=== PATIENT | female | born 1980 | race Caucasian/White ===

== ENCOUNTER 2018-11-23 12:08 | Emergency (ER) | payer OTHER, SELFPAY ==
[2018-11-23 12:09] VITALS: BP 108/60; PULSE 120; RESP 18; TEMP 36.1; O2SAT 99; BMI 17.8
--- NOTE | 2018-11-23 13:03 | CT_ITS ---
STUDY: CT ABDOMEN AND PELVIS WITH CONTRAST REASON FOR EXAM: Female, 38 years old. Left flank pain and left groin pain. RADIATION DOSAGE (If Supplied By Facility): CTDIvol = ( 5.93 ) mGy, DLP = ( 258.65 ) mGycm TECHNIQUE: Transaxial images were obtained from the dome of the diaphragm to the symphysis pubis without oral contrast. 80ML ml of Isovue 300 contrast was administered. Sagittal and coronal images were reconstructed. Individualized dose optimization techniques were used for this CT. COMPARISON: None. FINDINGS: The visualized lung bases are unremarkable. The visualized portions of the heart are within normal limits. Normal liver. Normal gallbladder and extrahepatic biliary system. Normal spleen. Normal pancreas. Normal bilateral adrenal glands. There is a 4.3 mm calculus in the upper pole calyx of the right kidney. Normal left kidney. Normal visualized stomach. Normal small intestine. Normal colon. The appendix is visualized and appears normal. Normal abdominal aorta. Normal inferior vena cava. Normal retroperitoneum. Normal urinary bladder. There is a 1.9 cm x 1.9 cm dominant follicle in the left ovary. ESSURE devices are seen in the fallopian tubes. Normal abdominal wall. Limbus vertebrae involving the anterior superior endplates of the L3 and L4 vertebrae. CT/Abdomen/Pelvis W IV Cont ONLY IMPRESSION: There is a 4.3 mm nonobstructive calculus in the upper pole calyx of the right kidney. 1.9 cm x 1.9 cm dominant follicle in the left ovary. Electronically Signed: Rajat Arevalo MD at 15:13 EST Tel [phone], Service support ,
--- NOTE | 2018-11-23 13:04 | ED.VISSUMM ---
- ER Visit Summary Date of Service: 11/23/18 Chief Complaint: Sided abdominal pain and flank pain. History of Present Illness: The patient is a 38 F dyspnea past medical history. Only prior surgery was a . Patient states yesterday she started gradual onset left-sided abdominal flank pain. Associated nausea with dry heaves. No diarrhea. No dysuria. Last menstrual period was in October some time. States she is not late. States she had a fever as high as 103.5 yesterday. Denies any cough or shortness of breath. She has never had pyelonephritis nor diverticulitis. She denies any vaginal bleeding or discharge. Physical Examination: Young female no acute distress. Vital signs are stable. Currently afebrile. Pulse is 9 9% room air no signs of hypoxia. HEENT exam unremarkable. Neck nontender no lymphadenopathy. Lungs clear to auscultation bilaterally. Heart tachycardic no murmur rate about 110. Abdomen soft. Tender left lower quadrant and left flank area. No ecchymosis or bruising. Nondistended. With the right upper right lower quadrant unremarkable. No signs of obstruction. No hernias or masses. No peritoneal signs. Positive bowel sounds. Back nontender. No CVA tenderness. Moving all 4 extremities. Neurovascularly intact. Patient is awake and alert with no focal motor deficits. Test Results: 12.5. Normal hemoglobin. Chemistries unremarkable normal creatinine and gap. Serum test negative. UA positive nitrates 50-100 white cells and 4+ bacteria. A culture was sent. CT flank study shows a right renal stone but no acute obstruction in this left ovarian cyst. The appendix is seen and was normal. Patient's exam and tests are consistent with a UTI and most likely early pyelonephritis on the left. Emergency Department Course and Treatment: Treated with IV fluids and Zofran for nausea. Repeat exam she is doing well at 1545. To this may be early pyelonephritis I am to give her 1 dose of IV was 7. She was started on Keflex 500 4 times daily. A urine culture was sent. She has no primary care physician she will be referred to Dr. Omar Ibarra. Treatment Plan: Keflex 500 4 times daily for 10 days. Fluids and rest. Return if worse. Disposition: Discharge Impression: Acute left flank pain and fever secondary to UTI consistent with early pyelonephritis This note was generated with Dragon dictation software. It may contain incorrect words, spelling, and punctuation that were not noted in review of the chart prior to signing ED Disposition - Plan for ED Patient: Chief Complaint: Abd Pain Referrals: NOT,DEFINED [NON-STAFF] -
[2018-11-23 13:27] LABS: Color, Urine Yellow (Yellow); Glucose, Dipstick Normal (Normal); Ketone-Dipstick 5 mg/dl (Negative); Leukocyte Esterase-Dipstick 500 /ul (Negative); Nitrite-Dipstick Positive (Negative); Occult Blood-Urine 150 /ul (Negative); Protein-Dipstick 30 mg/dl (Negative); Urine Bilirubin Dipstick Negative (Negative); Urine Clarity Cloudy (Clear); Urine Urobilinogen 1 mg/dl (Normal)
[2018-11-23] MEDS: Ondansetron 4 MG/2 ML Vial IV (13:31)
[2018-11-23] MEDS: 0.9% Normal Saline 1,000 ML 1000 ML IV (13:32)
[2018-11-23 13:38] LABS: Bacteria 4+ /hpf (None Seen); Mucous, Urine 2+ /hpf (<or=2+); Red Blood Cells-Urine 0-5 SEEN /hpf (0-5); Squamous Epithelial Cells - UA 0-5 SEEN /hpf (5-10); White Blood Cells 50-100 SEEN /hpf (0-5)
[2018-11-23 13:45] LABS: Absolute Lymphocyte Count 1.39 X10^3/ul (0.83-4.51); Absolute Neutrophil Count 9.6 X10^3/uL (2.0-7.7); Basophil# 0.02 X10^3/uL; Basophil% 0.2 % (0-1); Eosinophil# 0.03 X10^3/uL; Eosinophils% 0.2 % (0-5); Hematocrit 41.6 % (37-47); Hemoglobin 13.7 g/dl (12.0-15.0); Lymphocyte # 1.39 X10^3/ul (4.0); Lymphocyte % 11.2 % (19-41); Mean Corp Hgb Conc 32.9 g/gl (32-36); Mean Corpuscular Hgb 30.4 pg (27.0-32.0); Mean Corpuscular Volume 92.2 fL (81-99); Mean Platelet Vol. 9.3 fl (6.2-12.0); Monocyte# 1.38 X10^3/uL; Monocyte% 11.1 % (0-10); Neutrophil # 9.62 X10^3/uL (2.7-7.7); Neutrophil % 77.1 % (47-70); Platelet Count 207 K/mm3 (150-450); RBC Distribution Width CV 12.6 % (11.6-14.6); RBC Distribution Width SD 42.4 fl (35.1-43.9); Red Blood Count 4.51 M/mm3 (4.2-5.4); White Blood Count 12.5 K/mm3 (4.4-11.0)
[2018-11-23 13:47] LABS: POSITIVE COUNT NO; POSITIVE DIFFERENTIAL NO; POSITIVE MORPHOLOGY NO
[2018-11-23 14:01] LABS: Anion Gap 8 (5-15); BUN 9 mg/dL (7-18); BUN/Creat Ratio 11.9 RATIO (10-20); Calcium,Total 8.4 mg/dL (8.5-10.1); Chloride 105 mmol/L (98-107); Creatinine, Serum 0.76 mg/dL (0.55-1.02); EST Glomerular Filtration Rate 91 mL/min (>60); Est Glom Filt Rate - Afr Amer 110 mL/min (>60); Estimated Creatinine Clearance 74.74 ml/min; Glucose 96 mg/dL (74-106); Potassium 3.8 mmol/L (3.5-5.1); Sodium Level 138 mmol/L (136-145)
[2018-11-23 14:25] LABS: Pregnancy, Serum, hCG Quali. NEGATIVE Negative (0-9 Nonpreg)
[2018-11-23 15:04] VITALS: BP 93/54; PULSE 102; RESP 15; O2SAT 97
--- NOTE | 2018-11-23 15:48 | ED.DEP ---
ED Disposition - Plan for ED Patient: Disposition: Home or Assisted Living Chief Complaint: Abd Pain Instructions: ED Kidney Infec Female Prescriptions: Cephalexin [Keflex] 500 mg PO Q6 #40 cap Referrals: Omar Ibarra MD [STAFF PHYSICIAN] - 3-5 Days if not improving Additional Instructions: Plenty of fluids and rest. Keflex is an antibiotic for your urinary tract infection 1 pill 4 times a day till gone 10 days. Follow-up with primary care physician to ensure you are improving. I referred you to Dr. Omar Ibarra. Return to ER feeling worse.
[2018-11-23] MEDS: Ceftriaxone 1 GM/50 ML BAG IV (15:59)
[2018-11-23 16:39] VITALS: BP 117/69; PULSE 85; RESP 15; O2SAT 97
== END 2018-11-23 16:40 | disposition home or self-care (01) ==
PROVIDERS: Emergency Provider Emergency Medicine
DX: N10 Acute pyelonephritis (principal)
CPT/HCPCS: 74177; 80048; 81001; 84703; 85025; 87086; 87088; 87186; 96365; 96375; 99283; J7030; J7050; Q9967; J2405

== ENCOUNTER 2019-01-23 19:48 | Emergency (ER) | payer SELFPAY ==
[2019-01-23 19:50] VITALS: BP 102/58; PULSE 116; PULSE 121; RESP 17; TEMP 37.6; O2SAT 95; O2SAT 96; BMI 19.6
--- NOTE | 2019-01-23 20:16 | ED.DCSUM_ITS ---
- ER Visit Summary Date of Service: 01/23/19 Chief Complaint: Concern for urinary tract infection History of Present Illness: The patient is a 38 F who presents for 1 day of bilateral flank pain with urinary symptoms. Patient states she has had frequent UTIs, with 2 in the last 3 months, the first 1 treated with Keflex and the second 1 treated with Macrobid. Her last antibiotic use was in mid December. Yesterday she began having bilateral flank pain radiating around in the low abdomen. Patient had fever of 101. She began vomiting this morning and vomited multiple times. Now she is also complaining of upper abdominal pain. She denies any other symptoms. Patient denies any other medical history. Physical Examination: Vital signs: afebrile, hemodynamically stable, no hypoxia on room air General: well nourished, well developed, in no distress Skin: warm, dry, no rash, no pallor HEENT: normocephalic and atraumatic; PERRL, EOMI, moist mucous membranes Cardiovascular: Tachycardic rate and rhythm without murmurs, no peripheral edema, 2+ pulses all distal extremities Respiratory: No increased work of breathing, lungs are clear to auscultation bilaterally, no rales, rhonchi or wheezing Abdominal: Abdomen is soft, tender in the epigastrium with normoactive bowel sounds, positive CVA tenderness bilaterally, no guarding or rebound, no masses MSK: Moves all extremities, no deformities, normal strength Neuro: Awake and alert, oriented ?4. No facial droop, sensation and motor function intact and symmetric Test Results: Abnormal Lab Results 01/23/19 01/23/19 01/23/19 20:15 20:15 20:15 WBC 13.3 H RBC 4.02 L Hgb 12.0 Hct 36.8 L MCV 91.5 MCH 29.9 MCHC 32.6 RDW 13.4 RDW Differential 44.8 H Plt Count 174 MPV 9.4 Immature Gran % (Auto) 0.200 Neut % (Auto) 78.2 H Lymph % (Auto) 8.3 L [place] % (Auto) 13.0 H Eos % (Auto) 0.2 Baso % (Auto) 0.1 Absolute Neuts (auto) 10.4 H Absolute Lymphs (auto) 1.11 Sodium 136 Potassium 3.5 Chloride 105 Carbon Dioxide 25.0 Anion Gap 6 BUN 8 Creatinine 0.82 Estim Creat Clear Calc 71.52 Est GFR (MDRD) Af Amer 101 Est GFR (MDRD) Non-Af 83 BUN/Creatinine Ratio 9.8 L Glucose 117 H Calcium 7.9 L Total Bilirubin 0.70 AST 9 L ALT 16 Alkaline Phosphatase 63 Total Protein 6.8 Albumin 3.2 Globulin 3.6 Albumin/Globulin Ratio 0.9 Lipase 39 L Urine Color Urine Clarity Urine pH Ur Specific [place] Urine Protein Urine Glucose (UA) Urine Ketones Urine Occult Blood Urine Nitrite Urine Bilirubin Urine Urobilinogen Ur Leukocyte Esterase Urine RBC Urine WBC Ur Squamous Epith Cells Urine Bacteria Urine Mucus Urine Test Negative 01/23/19 20:20 WBC RBC Hgb Hct MCV MCH MCHC RDW RDW Differential Plt Count MPV Immature Gran % (Auto) Neut % (Auto) Lymph % (Auto) [place] % (Auto) Eos % (Auto) Baso % (Auto) Absolute Neuts (auto) Absolute Lymphs (auto) Sodium Potassium Chloride Carbon Dioxide Anion Gap BUN Creatinine Estim Creat Clear Calc Est GFR (MDRD) Af Amer Est GFR (MDRD) Non-Af BUN/Creatinine Ratio Glucose Calcium Total Bilirubin AST ALT Alkaline Phosphatase Total Protein Albumin Globulin Albumin/Globulin Ratio Lipase Urine Color Yellow Urine Clarity Sl. Cloudy Urine pH 6.0 Ur Specific [place] 1.015 Urine Protein 30 H Urine Glucose (UA) Normal Urine Ketones 150 H Urine Occult Blood 150 H Urine Nitrite Positive H Urine Bilirubin 1 H Urine Urobilinogen 8 H Ur Leukocyte Esterase 500 H Urine RBC 50-100 SEEN Urine WBC 50-100 SEEN Ur Squamous Epith Cells 0-5 SEEN Urine Bacteria 3+ Urine Mucus 0 SEEN Urine Test Medications Given Discontinued Medications Ciprofloxacin HCl (Cipro) 500 mg PO X1 ONE Stop: 01/23/19 21:34 Sodium Chloride () 1,000 mls @ 1,000 mls/hr IV .Q1H ONE Stop: 01/23/19 21:13 Last Admin: 01/23/19 20:26 Dose: 1,000 mls/hr Ketorolac Tromethamine (Toradol) 15 mg IV X1 ONE Stop: 01/23/19 20:15 Last Admin: 01/23/19 20:26 Dose: 15 mg Ondansetron HCl (Zofran) 4 mg IV X1 ONE Stop: 01/23/19 20:15 Last Admin: 01/23/19 20:26 Dose: 4 mg Emergency Department Course and Treatment: Patient was given IV fluids, Toradol and Zofran for symptomatic relief. Her upper abdominal pain did not start until after her episodes of violent vomiting, thus the upper abdominal pain is most likely due to the vomiting. Patient has a mild leukocytosis which may be due to demarginalization from the vomiting. Patient's urine was strongly positive for infection. Given the upper back pain associated with the UTI, patient will be treated for pyelonephritis. She is well-appearing at this time and able to tolerate oral intake. She is feeling better on reevaluation after receiving medications and fluids. Patient is amenable to outpatient treatment and was started on ciprofloxacin based on culture results from her prior UTI and based on the antibiotic she had been given earlier this year. Patient was discharged home with return precautions. Treatment Plan: [] Disposition: [] Impression: early pyelonephritis This note was generated with [employer] dictation software. It may contain incorrect words, spelling, and punctuation that were not noted in review of the chart prior to signing ED Disposition - Plan for ED Patient: Disposition: Home or Assisted Living Instructions: ED Kidney Infec Female Prescriptions: Ciprofloxacin [Cipro] 500 mg PO BID #14 tab Referrals: Krissy Narvaez MD [STAFF PHYSICIAN] - As soon as possible Additional Instructions: The antibiotic for your urinary infection as prescribed for the entire 7 days, even if you are feeling better before it is complete. The this paperwork to establish primary care and for further evaluation of your recurrent UTIs. If you have any worsening of your condition or any new concerning symptoms, please return immediately to the emergency department for another evaluation.
[2019-01-23] MEDS: 0.9% Normal Saline 1,000 ML 1000 ML IV (20:26)
[2019-01-23] MEDS: Ondansetron 4 MG/2 ML Vial IV (20:26)
[2019-01-23] MEDS: Ketorolac 30 MG/ML Syringe 15 MG IV (20:26)
[2019-01-23 21:08] LABS: Absolute Lymphocyte Count 1.11 X10^3/ul (0.83-4.51); Absolute Neutrophil Count 10.4 X10^3/uL (2.0-7.7); Basophil# 0.01 X10^3/uL; Basophil% 0.1 % (0-1); Differential Indicated SCAN CRITERIA MET; Eosinophil# 0.02 X10^3/uL; Eosinophils% 0.2 % (0-5); Hematocrit 36.8 % (37-47); Lymphocyte # 1.11 X10^3/ul (4.0); Lymphocyte % 8.3 % (19-41); Mean Corp Hgb Conc 32.6 g/gl (32-36); Mean Corpuscular Hgb 29.9 pg (27.0-32.0); Mean Corpuscular Volume 91.5 fL (81-99); Mean Platelet Vol. 9.4 fl (6.2-12.0); Monocyte# 1.73 X10^3/uL; Neutrophil # 10.44 X10^3/uL (2.7-7.7); Neutrophil % 78.2 % (47-70); POSITIVE COUNT NO; POSITIVE DIFFERENTIAL YES; POSITIVE MORPHOLOGY NO; Platelet Count 174 K/mm3 (150-450); RBC Distribution Width CV 13.4 % (11.6-14.6); RBC Distribution Width SD 44.8 fl (35.1-43.9); Red Blood Count 4.02 M/mm3 (4.2-5.4); White Blood Count 13.3 K/mm3 (4.4-11.0)
[2019-01-23 21:14] LABS: ALB/GLOB Ratio 0.9 RATIO (0.9-2.4); AST(SGOT) 9 U/L (15-37); Alanine Aminotransfer ALT/SGPT 16 U/L (13-56); Albumin, Serum 3.2 g/dL (3.2-5.0); Alkaline Phosphatase 63 U/L (45-117); Anion Gap 6 (5-15); BUN 8 mg/dL (7-18); BUN/Creat Ratio 9.8 RATIO (10-20); Calcium,Total 7.9 mg/dL (8.5-10.1); Chloride 105 mmol/L (98-107); Creatinine, Serum 0.82 mg/dL (0.55-1.02); EST Glomerular Filtration Rate 83 mL/min (>60); Est Glom Filt Rate - Afr Amer 101 mL/min (>60); Estimated Creatinine Clearance 71.52 ml/min; Globulin 3.6 g/dL (2.2-4.2); Glucose 117 mg/dL (74-106); Internal QC Validated? YES +Cl - CLEAR BKGD; Lipase 39 U/L (73-393); Potassium 3.5 mmol/L (3.5-5.1); Pregnancy, Urine Negative Negative; Protein, Total 6.8 g/dL (6.4-8.2); Sodium Level 136 mmol/L (136-145)
[2019-01-23 21:18] LABS: Color, Urine Yellow (Yellow); Glucose, Dipstick Normal (Normal); Leukocyte Esterase-Dipstick 500 /ul (Negative); Mucous, Urine 0 SEEN /hpf (<or=2+); Nitrite-Dipstick Positive (Negative); Occult Blood-Urine 150 /ul (Negative); Protein-Dipstick 30 mg/dl (Negative); Specific Gravity, Urine 1.015 (1.002-1.030); Urine Clarity Sl. Cloudy (Clear); Urine Urobilinogen 8 mg/dl (Normal)
[2019-01-23 21:20] LABS: Urine Bilirubin Dipstick 1 mg/dL (Negative)
[2019-01-23 21:21] LABS: Ketone-Dipstick 150 mg/dl (Negative)
[2019-01-23 21:24] LABS: Bacteria 3+ /hpf (None Seen); Red Blood Cells-Urine 50-100 SEEN /hpf (0-5); Squamous Epithelial Cells - UA 0-5 SEEN /hpf (5-10); White Blood Cells 50-100 SEEN /hpf (0-5)
[2019-01-23 21:44] LABS: Differential Comment SCANNED; Platelet Estimate ADEQUATE (ADEQ)
[2019-01-23 22:13] VITALS: BP 89/51; PULSE 85; PULSE 88; RESP 17; O2SAT 98
[2019-01-23] MEDS: Ciprofloxacin 500 MG Tablet PO (22:15)
[2019-01-23 22:21] VITALS: BP 102/71; TEMP 36.4
--- NOTE | 2019-01-23 22:22 | ED.RN ---
PT TEST WALKED IN DEPARTMENT. PT DENIES ANY DIZZINESS UPON STANDING. PT'S LOWER BP WAS TAKEN SUPINE. PT REPORTS SYSTOLIC BP NORMALLY 99
[2019-01-25 13:21] LABS: Pathologist Review Reviewed
== END 2019-01-23 22:27 | disposition home or self-care (01) ==
PROVIDERS: Emergency Provider Emergency Medicine
DX: N12 Tubulo-interstitial nephritis, not specified as acute or chronic (principal); Z87.440 Personal history of urinary (tract) infections
CPT/HCPCS: 80053; 81001; 81025; 83690; 85025; 87086; 87088; 87186; 96361; 96374; 96375; 99284; J7030; J2405

== ENCOUNTER 2019-01-27 08:11 | Emergency (ER) | payer SELFPAY ==
[2019-01-27 08:12] VITALS: BP 119/80; PULSE 80; RESP 17; TEMP 36.9; O2SAT 97; BMI 21.4
--- NOTE | 2019-01-27 08:24 | CT_ITS ---
STUDY: CT ABDOMEN AND PELVIS WITH CONTRAST REASON FOR EXAM: Female, 38 years old. Right flank pain. RADIATION DOSAGE (If Supplied By Facility): CTDIvol = ( 10.00 ) mGy, DLP = ( 581.78 ) mGycm TECHNIQUE: Transaxial images were obtained from the dome of the diaphragm to the symphysis pubis without oral contrast. Isovue 300 100 IV was administered. Sagittal and coronal images were reconstructed. Individualized dose optimization techniques were used for this CT. COMPARISON: November 23, 2018. FINDINGS: Lung bases: Unremarkable. Heart: Unremarkable. Liver: Mild portal edema (axial image 30 series 2). Portal vein patent. No focal hepatic lesions identified. Gallbladder/biliary ducts: Unremarkable. Pancreas: Unremarkable. Spleen: Unremarkable. Adrenal glands: Unremarkable. Kidneys/ureters/bladder: Moderate right hydroureteronephrosis with 4 mm stone at the right proximal ureter (axial image 52 and 53 series 2). Minimal urinary bladder wall thickening (coronal image 42 series 601). Nondistended left ureter. Slightly delayed right nephrogram (axial image 30 series 2). Uterus/adnexa: Edematous uterus (axial image 95 series 2) with distended endometrial canal. Bilateral tubal devices (axial image 94 series 2). Right hyperdense cystic adnexa (axial image 92 series 2) measuring 1.6 cm. Small left cystic adnexa (axial image 92 series 2). Trace pelvic free fluid (axial image 92 series 2). Large bowel/small bowel: Mild retained stool burden. No acute small bowel or large bowel process. Appendix: Unremarkable (axial image 79 series 2). Gastroesophageal junction/stomach: Unremarkable. Retroperitoneum/lymph nodes: No intra-abdominal free air. Trace pelvic free fluid. No pathologically enlarged lymph nodes. Vascular: Unremarkable. Osseous structures: Minimal degenerative changes. L3 and L4 limbus vertebra. Small Schmorl's nodes. No acute process. Subcutaneous/soft tissues: Tiny fat-containing umbilical hernia. No acute process. CT/Abdomen/Pelvis W IV Cont ONLY IMPRESSION: Acute obstructing right proximal 4 mm ureteral stone with moderate right hydroureteronephrosis Delayed right renal nephrogram with mild urinary bladder wall thickening possibly representing early infection (correlate urinalysis) Edematous uterus, distended endometrial canal, bilateral cystic adnexa, tubal devices and trace pelvic free fluid (statistically physiologic) Additional nonemergent findings, as above Electronically Signed: Omar Garg DO at 9:38 EDT Tel , Service support ,
--- NOTE | 2019-01-27 08:26 | ED.VISSUMM ---
- ER Visit Summary Date of Service: 01/27/19 Chief Complaint: Right flank pain History of Present Illness: The patient is a 38 F with several days of right flank pain. She was here 4 days ago and diagnosed with pyelonephritis. She was started on Cipro. She has been taking it as prescribed. She continues to have pain in her suprapubic region, right flank, and right CVA region. She is taking Tylenol for pain. Symptoms seem to be worsening. Physical Examination: Afebrile and vital signs unremarkable. Patient is tearful and appears uncomfortable. Alert and oriented. Heart regular rate and rhythm. Lungs clear. Abdomen is tender in the suprapubic and right side. Right CVA also tender to palpation. No guarding or rebound. Skin appears normal. Test Results: Labs, urine, CT pending. Emergency Department Course and Treatment: I did review the patient's cultures. Her urine showed E. coli that was sensitive to Cipro. I am not sure why she is worsening. She says she is compliant with her treatment. Her pain is not controlled with Tylenol. She was given a dose of Toradol as well as fluids and Zofran. Will recheck labs and urine. Will add a CT today to evaluate for other causes. Patient's urinalysis is much improved. CBC and BMP unremarkable. CT showed a 4 mm right proximal ureter stone with obstruction. She also has some edematous changes to her uterus which are likely physiologic. Patient will be prescribed Percocet for pain. Zofran as needed. Follow-up with urology. She should also follow-up with her primary care doctor and/or [facility] regarding her incidental uterine findings. These are likely physiologic and not an emergent process. Treatment Plan: Above Disposition: Discharge Impression: 1. Right ureteral colic This note was generated with [employer] software. It may contain incorrect words, spelling, and punctuation that were not noted in review of the chart prior to signing ED Disposition - Plan for ED Patient: Referrals: Krissy Narvaez MD [Primary Care Provider] -
[2019-01-27] MEDS: Ondansetron 4 MG/2 ML Vial IV (08:36)
[2019-01-27] MEDS: 0.9% Normal Saline 1,000 ML 1000 ML IV (08:36)
[2019-01-27] MEDS: Ketorolac 30 MG/ML Syringe IV (08:36)
[2019-01-27 08:43] LABS: Absolute Lymphocyte Count 1.39 X10^3/ul (0.83-4.51); Absolute Neutrophil Count 6.8 X10^3/uL (2.0-7.7); Basophil# 0.03 X10^3/uL; Basophil% 0.3 % (0-1); Eosinophil# 0.05 X10^3/uL; Eosinophils% 0.6 % (0-5); Hematocrit 37.4 % (37-47); Hemoglobin 11.9 g/dl (12.0-15.0); Lymphocyte # 1.39 X10^3/ul (4.0); Lymphocyte % 15.4 % (19-41); Mean Corp Hgb Conc 31.8 g/gl (32-36); Mean Corpuscular Hgb 29.2 pg (27.0-32.0); Mean Corpuscular Volume 91.9 fL (81-99); Monocyte# 0.77 X10^3/uL; Monocyte% 8.5 % (0-10); Neutrophil # 6.77 X10^3/uL (2.7-7.7); Neutrophil % 74.9 % (47-70); Platelet Count 269 K/mm3 (150-450); RBC Distribution Width CV 13.7 % (11.6-14.6); RBC Distribution Width SD 45.9 fl (35.1-43.9); Red Blood Count 4.07 M/mm3 (4.2-5.4)
[2019-01-27 08:45] LABS: POSITIVE COUNT NO; POSITIVE DIFFERENTIAL NO; POSITIVE MORPHOLOGY NO
[2019-01-27 08:51] LABS: Anion Gap 7 (5-15); BUN 16 mg/dL (7-18); BUN/Creat Ratio 17.5 RATIO (10-20); Calcium,Total 8.7 mg/dL (8.5-10.1); Chloride 107 mmol/L (98-107); Creatinine, Serum 0.91 mg/dL (0.55-1.02); EST Glomerular Filtration Rate 73 mL/min (>60); Est Glom Filt Rate - Afr Amer 89 mL/min (>60); Estimated Creatinine Clearance 63.25 ml/min; Glucose 108 mg/dL (74-106); Potassium 3.7 mmol/L (3.5-5.1); Sodium Level 139 mmol/L (136-145)
[2019-01-27 08:54] LABS: Mucous, Urine 0 SEEN /hpf (<or=2+); White Blood Cells 0 SEEN /hpf (0-5)
[2019-01-27 08:55] LABS: Color, Urine Yellow (Yellow); Glucose, Dipstick Normal (Normal); Ketone-Dipstick Negative (Negative); Leukocyte Esterase-Dipstick Negative /ul (Negative); Nitrite-Dipstick Negative (Negative); Occult Blood-Urine 25 /ul (Negative); Protein-Dipstick Negative (Negative); Urine Bilirubin Dipstick Negative (Negative); Urine Clarity Clear (Clear); Urine Urobilinogen Normal (Normal)
[2019-01-27 09:06] LABS: Bacteria RARE /hpf (None Seen); Red Blood Cells-Urine 0-5 SEEN /hpf (0-5); Squamous Epithelial Cells - UA 0-5 SEEN /hpf (5-10)
--- NOTE | 2019-01-27 09:50 | ED.DEP ---
ED Disposition - Plan for ED Patient: Instructions: ED Stone Renal W Colic Prescriptions: Oxycodone HCl/Acetaminophen [Percocet 5/325] 1 tab PO Q6H PRN PRN 3 Days #12 tab PRN Reason: Pain Ondansetron [Zofran Odt] 4 mg PO Q8H PRN PRN #10 tab PRN Reason: Nausea Smz/Tmp Ds [Bactrim Ds] 1 tab PO BID #14 tab Referrals: Krissy Narvaez MD [Primary Care Provider] - Sascha Zuniga MD [STAFF PHYSICIAN] -
[2019-01-27 10:11] VITALS: RESP 18
[2019-08-24 14:01] VITALS: BMI 20.6
== END 2019-01-27 10:19 | disposition home or self-care (01) ==
LOC: ED 09:27
PROVIDERS: Emergency Provider Emergency Medicine; Family Provider Internal Medicine; PCP Internal Medicine
DX: N13.2 Hydronephrosis with renal and ureteral calculous obstruction (principal)
CPT/HCPCS: 74177; 80048; 81001; 85025; 96361; 96374; 96375; 99283; J7030; Q9967; A4216; J2405

== ENCOUNTER 2019-02-07 11:52 | Day surgery (SDC) | payer SELFPAY ==
[2019-02-07 12:16] LABS: Internal QC Validated? YES +Cl - CLEAR BKGD; Pregnancy, Urine Negative Negative
[2019-02-07 12:19] VITALS: BP 100/66; PULSE 82; RESP 18; TEMP 36.9; O2SAT 100; BMI 18.6
--- NOTE | 2019-02-07 14:59 | PCM.OPRPT ---
Problem List (1) Right ureteral calculus Status: Acute Report of Operation Date of Procedure: 02/07/19 Pre-Operative Diagnosis: right ureteral calculus Post-Operative Diagnosis: same Surgery/Procedure Performed:: cystoscopy, right ureteroscopy, laser lithotripsy, right ureteral stent insertion Description of Surgical Findings:: Stone was embedded under ureteral mucosa. laser lithotripsy was difficult, and the stone was not able to be entirely removed. Stent placed in good position. Type of Anesthesia:: General Special Medications: ancef Estimated Blood Loss (mL): 5cc Description of Procedure: The patient is a 38-year-old female who has been treated for urinary tract infections for approximately 1 month including one episode of pyelonephritis. Eventually someone obtained imaging and identified a mid ureteral calculus on the right side. After discussing the risks, benefits and alternatives she agreed to proceed with surgical intervention. Formed consent was obtained. The patient was taken to the operating room and placed on the operating room table. Anesthesia monitored the head, neck, airway, IV access and vital signs throughout the case. Once anesthesia was appropriately administered the patient was placed into dorsal lithotomy position. She was prepped and draped in usual sterile fashion. At this time a cystourethroscopy was performed revealing no evidence of bladder mucosal abnormality, calculus, foreign body, ulceration or erythema. The right ureteral orifice was identified and intubated with 2 separate 0.035 Glidewires. One of these wires was used as a safety wire and the other was used for the flexible ureteroscope. The stone was identified in the proximal ureter. It was large and almost completely covered with mucosa. Using a 270 ?m laser fiber, laser lithotripsy was performed until I could not safely continue. At this time the laser fiber was removed, and a 6 [place] 24 cm double-J stent was passed alongside the stone into the renal pelvis. Good curling position was identified under fluoroscopic visualization in the renal pelvis and was visualized directly in the bladder. The patient's bladder was emptied and the case was concluded. The patient was awakened and taken to the recovery room in good condition. Grafts/Implants Used: 6x24 JJ stent - Complications none - Admit VTE Documentation VTE Present on Admission: Yes VTE Mechan Device Prophylaxis: SCD's VTE Pharm Prophylaxis ordered?: No Reason prophylaxis not ordered:: Treatment Not Indicated
[2019-02-07] MEDS: Cefazolin 2 GM in 0.9% Normal Saline 100 ML IV (15:02)
[2019-02-07 16:12] VITALS: BP 100/66; BP 116/86; PULSE 63; RESP 18; TEMP 36.2; O2SAT 98
[2019-02-07 16:15] VITALS: BP 100/66; BP 112/78; PULSE 60; RESP 18; O2SAT 98
--- NOTE | 2019-02-07 16:27 | DCINST_ITS ---
Discharge Diet: No Restrictions Discharge Activity: May not drive while taking narcotic pain medications. May resume sexual activity in: 4 weeks Call your doctor if you observe: Fever of 101 or Higher, Inability to urinate, Shortness of breath, Chest pain, Calf discomfort, Uncontrolled pain Allergies/Adverse Reactions: Allergies No Known Allergies Allergy (Verified 02/04/19 08:25) Medications to take at Discharge Ondansetron [Zofran Odt] 4 mg PO Q8H PRN PRN #10 tab 01/27/19 Oxycodone HCl/Acetaminophen [Percocet 5-325 mg Tablet] 1 ea PO PRN PRN #20 tab 02/07/19 Phenazopyridine HCl [Pyridium] 200 mg PO TID PRN PRN 7 Days #30 tab 02/07/19 Smz/Tmp Ds [Bactrim Ds] 1 tab PO BID 3 Days #6 tab 02/07/19 The following prescriptions were given: Oxycodone HCl/Acetaminophen [Percocet 5-325 mg Tablet] 1 ea PO PRN PRN #20 tab PRN Reason: Pain Phenazopyridine HCl [Pyridium] 200 mg PO TID PRN PRN 7 Days #30 tab PRN Reason: Bladder Spasms Smz/Tmp Ds [Bactrim Ds] 1 tab PO BID 3 Days #6 tab Primary Care Physician: Care Physician,No Primary [Primary Care Provider] - Test Results: Test results from this visit will be discussed in further detail at your follow- up appointment, if applicable. Please Follow Up With: Aida Sainz MD When: call the office Proposed Discharge Date: 02/07/19
[2019-02-07 16:30] VITALS: BP 100/66; BP 114/75; PULSE 52; RESP 18; O2SAT 100
[2019-02-07 16:49] VITALS: BP 100/66; BP 108/76; PULSE 59; RESP 18; TEMP 36.3; O2SAT 100
[2019-02-07 18:00] VITALS: BP 100/66; BP 111/72; PULSE 62; RESP 16; TEMP 36.8; O2SAT 100
== END 2019-02-07 18:01 | disposition home or self-care (01) ==
LOC: SDC 11:53 → AC 11:55
PROVIDERS: Anesthesiology; Referring Provider Urology; Visit Provider Urology
PROC: 0TJ98ZZ Inspection of Ureter, Via Natural or Artificial Opening Endoscopic (ICD-10-PCS; CPT 52352; principal; 2019-02-07 14:10)
DX: N13.2 Hydronephrosis with renal and ureteral calculous obstruction (principal); N39.0 Urinary tract infection, site not specified; Z87.440 Personal history of urinary (tract) infections
CPT/HCPCS: 00918; 52356; 76000; 81025; J7120; C1769; C2617; J2405

== ENCOUNTER 2019-02-22 08:56 | Day surgery (SDC) | payer OTHER, SELFPAY ==
[2019-02-15 14:42] VITALS: BMI 18.6
--- NOTE | 2019-02-22 08:43 | PCM.OPRPT ---
Problem List (1) Right ureteral calculus Status: Acute Report of Operation Date of Procedure: 02/22/19 Pre-Operative Diagnosis: right embedded ureteral calculus Post-Operative Diagnosis: same, stone moved into right renal pelvis. Surgery/Procedure Performed:: cystoscopy, right ureteroscopy, laser lithotripsy, right ureteral stent change Description of Surgical Findings:: stone that was in ureter was dislodged and moved into kidney after last case. fragmented into small pieces too small for removal. Stent changed, good positioning. Type of Anesthesia:: General Estimated Blood Loss (mL): 3cc Description of Procedure: The patient is a 38-year-old woman who underwent a right-sided ureteroscopy with laser lithotripsy approximately 2 weeks ago for an embedded right ureteral calculus. She now presents for completed surgical intervention on her right ureteral calculus. All risks benefits and alternatives were discussed and informed consent was obtained. The patient was taken to the operating room and placed on the operating room table. Anesthesia monitored the head, neck, airway, IV access and vital signs throughout the case. Once anesthesia was superbly administered, the patient was prepped and draped in usual sterile fashion. A cystourethroscopy was performed and 2.035 Glidewire were inserted alongside the ureteral stent which was then removed without difficulty. The flexible ureteroscope was passed over 1 of the Glidewire into the renal pelvis without difficulty. Ureteroscopy revealed a calcification in the right lower pole with no ureteral stones identified. The stone in the kidney was then lasered with the 270 ?m holmium laser fiber. It was broken into small fragments and dust and I was unable to obtain specimen for evaluation. At the conclusion of the lasering process, the renal pelvis was flushed with sterile saline through the scope and careful visualization of the ureter was performed upon exiting from the ureter. No further stones were identified. At this time the remaining safety wire was used to pass a 6 [place] 24 cm double-J stent with good curling in the renal pelvis as well as the urinary bladder. The patient's bladder was emptied and the case was terminated. The patient was awakened and taken to the recovery room in good condition. There were no complications during this procedure. Grafts/Implants Used: 6x24 JJ stent - Complications none - Admit VTE Documentation VTE Present on Admission: Yes VTE Mechan Device Prophylaxis: SCD's VTE Pharm Prophylaxis ordered?: No Reason prophylaxis not ordered:: Treatment Not Indicated
--- NOTE | 2019-02-22 08:45 | DCINST_ITS ---
Discharge Diet: No Restrictions Discharge Activity: Return to Normal Activity, May not drive while taking narcotic pain medications. May resume sexual activity in: 1 week Call your doctor if you observe: Fever of 101 or Higher, Inability to urinate, Shortness of breath, Chest pain, Calf discomfort, Uncontrolled pain Allergies/Adverse Reactions: Allergies No Known Allergies Allergy (Verified 02/15/19 14:34) Medications to take at Discharge Oxycodone HCl/Acetaminophen [Percocet 5-325 mg Tablet] 1 ea PO PRN PRN #20 tab 02/22/19 Smz/Tmp Ds [Bactrim Ds] 1 tab PO BID 3 Days #6 tab 02/22/19 The following prescriptions were given: Oxycodone HCl/Acetaminophen [Percocet 5-325 mg Tablet] 1 ea PO PRN PRN #20 tab PRN Reason: Pain Smz/Tmp Ds [Bactrim Ds] 1 tab PO BID 3 Days #6 tab Primary Care Physician: Krissy Narvaez MD [Primary Care Provider] - Test Results: Test results from this visit will be discussed in further detail at your follow- up appointment, if applicable. Please Follow Up With: Aida Sainz MD When: call office for appt. for stent removal on . Proposed Discharge Date: 02/22/19
[2019-02-22 09:21] LABS: Internal QC Validated? YES +Cl - CLEAR BKGD
[2019-02-22 09:28] LABS: Pregnancy, Urine Negative Negative
[2019-02-22 09:29] VITALS: BP 106/63; PULSE 68; RESP 16; TEMP 37.4; O2SAT 100; BMI 19.3
[2019-02-22] MEDS: Cefazolin 2 GM in 0.9% Normal Saline 100 ML IV (10:17)
[2019-02-22 11:26] VITALS: BP 106/63; BP 99/64; PULSE 86; RESP 16; TEMP 36.3; O2SAT 100
[2019-02-22 11:30] VITALS: BP 106/63; BP 117/82; PULSE 70; RESP 16; O2SAT 100
[2019-02-22 11:45] VITALS: BP 106/63; BP 81/59; PULSE 65; RESP 16; O2SAT 99
[2019-02-22 11:54] VITALS: BP 106/63; BP 115/76; PULSE 62; RESP 16; TEMP 36.5; O2SAT 100
[2019-02-22] MEDS: oxyCODONE 5 MG Tablet PO (12:24)
[2019-02-22 12:59] VITALS: BP 106/63; BP 114/76; PULSE 78; RESP 16; TEMP 36.8; O2SAT 100
== END 2019-02-22 13:18 | disposition home or self-care (01) ==
LOC: SDC 08:58 → AC 09:00
PROVIDERS: Anesthesiology; Family Provider Internal Medicine; PCP Internal Medicine; Referring Provider Urology; Visit Provider Urology
PROC: 0TJ98ZZ Inspection of Ureter, Via Natural or Artificial Opening Endoscopic (ICD-10-PCS; CPT 52352; principal; 2019-02-22 10:30)
DX: N13.2 Hydronephrosis with renal and ureteral calculous obstruction (principal); N39.0 Urinary tract infection, site not specified
CPT/HCPCS: 52356; 76000; 81025; J7120; C1769; C2617

== ENCOUNTER → 2019-04-06 14:54 | Outpatient (CLI) | payer OTHER, SELFPAY ==
[2019-04-06 13:50] VITALS: BMI 20.6
[2019-04-06 15:21] LABS: Absolute Lymphocyte Count 2.57 X10^3/ul (0.83-4.51); Absolute Neutrophil Count 3.1 X10^3/uL (2.0-7.7); Basophil# 0.04 X10^3/uL; Basophil% 0.6 % (0-1); Eosinophil# 0.13 X10^3/uL; Hematocrit 42.1 % (37-47); Hemoglobin 13.7 g/dl (12.0-15.0); Lymphocyte # 2.57 X10^3/ul (4.0); Lymphocyte % 39.9 % (19-41); Mean Corp Hgb Conc 32.5 g/gl (32-36); Mean Corpuscular Hgb 29.5 pg (27.0-32.0); Mean Corpuscular Volume 90.5 fL (81-99); Mean Platelet Vol. 9.1 fl (6.2-12.0); Monocyte# 0.61 X10^3/uL; Monocyte% 9.5 % (0-10); Neutrophil # 3.08 X10^3/uL (2.7-7.7); Neutrophil % 47.8 % (47-70); Platelet Count 274 K/mm3 (150-450); Red Blood Count 4.65 M/mm3 (4.2-5.4); White Blood Count 6.4 K/mm3 (4.4-11.0)
[2019-04-06 15:24] LABS: POSITIVE COUNT NO; POSITIVE DIFFERENTIAL NO; POSITIVE MORPHOLOGY NO
[2019-04-06 16:01] LABS: Thyroid Stim Hormone (TSH) 1.59 uIU/mL (0.358-3.74)
[2019-04-09 03:06] LABS: DHEA Sulfate 143.3 ug/dL (57.3-279.2)
[2019-04-09 12:45] LABS: Testosterone Free 0.9 pg/mL (0.0-4.2)
[2019-04-14 16:46] LABS: 17-Hydroxyprogesterone 14 ng/dL (.)
== END ==
PROVIDERS: Family Provider Internal Medicine; PCP Internal Medicine; Referring Provider Obstetrics & Gynecology; Visit Provider Obstetrics & Gynecology
DX: L68.0 Hirsutism (principal)
CPT/HCPCS: 36415; 82627; 83498; 84402; 84443; 85025; 82626

== ENCOUNTER → 2019-04-15 12:59 | Outpatient (CLI) | payer OTHER, SELFPAY ==
[2019-04-06 13:50] VITALS: BMI 20.6
--- NOTE | 2019-04-15 13:02 | US_ITS ---
STUDY: ULTRASOUND OF THE FEMALE PELVIS - COMPLETE REASON FOR EXAM: Female, 38 years old. Abnormal uterus seen on CT. LMP: April 06, 2019. TECHNIQUE: Transabdominal and Transvaginal TECHNICAL QUALITY: Adequate. COMPARISON: None. FINDINGS: The uterus is anteverted and is in a midline position. The uterus measures 7.5 x 4.3 x 3.7 cm. Normal uterine cervix. The endometrium measures 8 mm in thickness, and is hyperechoic. There is no demonstrated endometrial mass. There is no demonstrated myometrial mass. I.U.D. - The patient does not have an I.U.D. The right ovary is visualized. The right ovary measures 3.3 x 2.2 x 2.2 cm. There is no right ovarian cyst or ovarian mass. There is a 1.7 x 1.7 x 1.0 cm cyst versus dominant follicle. There is normal arterial and normal venous vascularity. The left ovary is visualized. The left ovary measures 2.0 x 1.9 x 1.2 cm. There are multiple follicles of the left ovary without a dominant cyst. There is no visualized left adnexal mass or complex lesion. There is normal arterial and normal venous vascularity. There is no fluid in the cul-de-sac. The distended urinary bladder demonstrates a volume of 196 mL. There is no mass or other abnormality. Polycystic ovary disease: No. US/Transvaginal Non- IMPRESSION: 1. Normal appearing uterus. 2. Dominant follicle versus cyst in the right ovary. The left ovary is unremarkable. Electronically Signed: Otilio Taylor DO at 16:59 EDT Tel [phone], Service support ,
--- NOTE | 2019-04-15 13:02 | US_ITS ---
STUDY: ULTRASOUND OF THE FEMALE PELVIS - COMPLETE REASON FOR EXAM: Female, 38 years old. Abnormal uterus seen on CT. LMP: April 06, 2019. TECHNIQUE: Transabdominal and Transvaginal TECHNICAL QUALITY: Adequate. COMPARISON: None. FINDINGS: The uterus is anteverted and is in a midline position. The uterus measures 7.5 x 4.3 x 3.7 cm. Normal uterine cervix. The endometrium measures 8 mm in thickness, and is hyperechoic. There is no demonstrated endometrial mass. There is no demonstrated myometrial mass. I.U.D. - The patient does not have an I.U.D. The right ovary is visualized. The right ovary measures 3.3 x 2.2 x 2.2 cm. There is no right ovarian cyst or ovarian mass. There is a 1.7 x 1.7 x 1.0 cm cyst versus dominant follicle. There is normal arterial and normal venous vascularity. The left ovary is visualized. The left ovary measures 2.0 x 1.9 x 1.2 cm. There are multiple follicles of the left ovary without a dominant cyst. There is no visualized left adnexal mass or complex lesion. There is normal arterial and normal venous vascularity. There is no fluid in the cul-de-sac. The distended urinary bladder demonstrates a volume of 196 mL. There is no mass or other abnormality. Polycystic ovary disease: No. US/Pelvic (Non ) IMPRESSION: 1. Normal appearing uterus. 2. Dominant follicle versus cyst in the right ovary. The left ovary is unremarkable. Electronically Signed: Otilio Taylor DO at 16:59 EDT Tel [phone], Service support ,
== END ==
PROVIDERS: Family Provider Internal Medicine; PCP Internal Medicine; Referring Provider Obstetrics & Gynecology; Visit Provider Obstetrics & Gynecology
DX: L68.0 Hirsutism (principal)
CPT/HCPCS: 76830; 76856; 93976

== ENCOUNTER → 2019-05-26 14:15 | Outpatient (CLI) | payer OTHER, SELFPAY ==
[2019-05-26 13:35] VITALS: BMI 20.6
[2019-05-26 15:15] LABS: Anion Gap 5 (5-15); BUN 10 mg/dL (7-18); BUN/Creat Ratio 12.2 RATIO (10-20); Calcium,Total 8.7 mg/dL (8.5-10.1); Chloride 105 mmol/L (98-107); Creatinine, Serum 0.82 mg/dL (0.55-1.02); EST Glomerular Filtration Rate 83 mL/min (>60); Est Glom Filt Rate - Afr Amer 100 mL/min (>60); Glucose 77 mg/dL (74-106); Potassium 3.5 mmol/L (3.5-5.1); Sodium Level 139 mmol/L (136-145)
== END ==
PROVIDERS: Family Provider Internal Medicine; PCP Internal Medicine; Referring Provider Obstetrics & Gynecology; Visit Provider Obstetrics & Gynecology
DX: Z92.29 Personal history of other drug therapy (principal)
CPT/HCPCS: 36415; 80048

== ENCOUNTER → 2019-08-24 16:56 | Outpatient (CLI) | payer OTHER, SELFPAY ==
[2019-08-24 14:01] VITALS: BMI 20.6
[2019-08-24 19:28] LABS: Chlamydia Trachomatis by PCR Negative (Negative); Neisserai gonorrhoeae by PCR Negative (Negative); Probe Check PASS; Sample Adequacy Control PASS; Specimen Processing Control PASS
== END ==
PROVIDERS: Family Provider Internal Medicine; PCP Internal Medicine; Referring Provider Nurse Practitioner Women's Health; Visit Provider Nurse Practitioner Women's Health
DX: N89.8 Other specified noninflammatory disorders of vagina (principal); Z11.3 Encounter for screening for infections with a predominantly sexual mode of transmission
CPT/HCPCS: 87070; 87205; 87491; 87591

== ENCOUNTER → 2019-09-22 12:24 | Outpatient (CLI) | payer OTHER, SELFPAY ==
[2019-08-24 14:01] VITALS: BMI 20.6
--- NOTE | 2019-09-22 12:28 | RAD_ITS ---
STUDY: X-RAY - ABDOMEN/PELVIS REASON FOR EXAM: Female, 39 years old. Kidney stone TECHNIQUE: Frontal view of the abdomen COMPARISON: None. FINDINGS: There is no bowel obstruction. There is air and stool to the level of the rectum. The visualized osseous structures are within normal limits. RAD/Abdomen Single View IMPRESSION: No bowel obstruction. Electronically Signed: David Escobedo, at 19:19 EST Tel , Service support ,
== END ==
PROVIDERS: Family Provider Internal Medicine; PCP Internal Medicine; Referring Provider Urology; Visit Provider Urology
DX: N20.0 Calculus of kidney (principal)
CPT/HCPCS: 74018

== ENCOUNTER → 2020-05-22 16:01 | Outpatient (CLI) | payer OTHER, SELFPAY ==
[2020-05-22 15:18] VITALS: BMI 20.6
[2020-05-22 17:23] LABS: Absolute Lymphocyte Count 2.44 X10^3/uL (0.83-4.51); Absolute Neutrophil Count 4.1 X10^3/uL (2.0-7.7); Basophil# 0.05 X10^3/uL; Basophil% 0.7 % (0-1); Eosinophil# 0.11 X10^3/uL; Eosinophils% 1.5 % (0-5); Hemoglobin 13.8 g/dL (12.0-15.0); Lymphocyte # 2.44 X10^3/ul (4.0); Lymphocyte % 32.9 % (19-41); Mean Corp Hgb Conc 32.1 g/dL (32-36); Mean Corpuscular Hgb 30.8 pg (27.0-32.0); Mean Platelet Vol. 9.5 fl (6.2-12.0); Monocyte% 9.4 % (0-10); NRBC Flagged by Analyzer 0 % (0-5); Neutrophil # 4.09 X10^3/uL (2.7-7.7); Neutrophil % 55.1 % (47-70); Platelet Count 265 K/mm3 (150-450); RBC Distribution Width CV 12.8 % (11.6-14.6); RBC Distribution Width SD 44.8 fl (35.1-43.9); Red Blood Count 4.48 M/mm3 (4.2-5.4); White Blood Count 7.4 K/mm3 (4.4-11.0)
[2020-05-22 17:45] LABS: ALB/GLOB Ratio 1.1 RATIO (0.9-2.4); AST(SGOT) 15 U/L (15-37); Alanine Aminotransfer ALT/SGPT 23 U/L (13-56); Alkaline Phosphatase 60 U/L (45-117); Anion Gap 4 (5-15); BUN 10 mg/dL (7-18); BUN/Creat Ratio 13.1 RATIO (10-20); Calcium,Total 8.4 mg/dL (8.5-10.1); Chloride 105 mmol/L (98-107); Creatinine, Serum 0.76 mg/dL (0.55-1.02); EST Glomerular Filtration Rate 89 mL/min (>60); Est Glom Filt Rate - Afr Amer 108 mL/min (>60); Globulin 3.5 g/dL (2.2-4.2); Glucose 84 mg/dL (74-106); Potassium 4.4 mmol/L (3.5-5.1); Protein, Total 7.5 g/dL (6.4-8.2); Sodium Level 138 mmol/L (136-145); T4 Free Direct 0.92 ng/dL (0.76-1.46); Thyroid Stim Hormone (TSH) 1.08 uIU/mL (0.358-3.74)
== END ==
PROVIDERS: PCP Internal Medicine; Referring Provider Internal Medicine; Visit Provider Internal Medicine
DX: F41.9 Anxiety disorder, unspecified (principal); F32.9 Major depressive disorder, single episode, unspecified
CPT/HCPCS: 36415; 80053; 84439; 84443; 85025

== ENCOUNTER → 2020-10-29 12:44 | Outpatient (CLI) | payer OTHER, SELFPAY ==
[2020-09-24 10:53] VITALS: BMI 20.6
--- NOTE | 2020-10-29 12:46 | BI_ITS ---
MAMMOGRAPHY - BILATERAL SCREENING REASON FOR EXAM: Female, 40 years old. Routine annual screening examination. PERTINENT HISTORY: Non-contributory. TECHNIQUE: Digital bilateral breast mic (3D mammographic acquisition) in the CC and MLO projections. 2-D mediolateral oblique (MLO) and craniocaudad (CC) views of both breasts were obtained. CAD: Full Field Digital Mammography with Computer Added Detection was performed. COMPARISON: None. Baseline examination. FINDINGS: Breast Composition: The breasts are heterogeneously dense, which may obscure small masses. There are no dominant masses or suspicious calcifications. No other significant abnormalities are identified. BI/SCREEN MAMM (CAD) W/MIC BILAT IMPRESSION: Negative screening mammogram. Yearly followup mammogram recommended. (A) ASSESSMENT CATEGORY: BIRADS Category 2: Benign. A letter regarding these results will be sent to the patient by the facility within 30 days. Approximately 10% of breast cancers are not detected by mammography. A normal mammogram should not delay biopsy of a clinically suspicious abnormality. [id number] Electronically Signed: Rajat Arevalo, at 13:54 EST , Service support ,
== END ==
PROVIDERS: PCP Internal Medicine; Referring Provider Internal Medicine; Visit Provider Internal Medicine
DX: Z12.31 Encounter for screening mammogram for malignant neoplasm of breast (principal)
CPT/HCPCS: 77063; 77067

== ENCOUNTER → 2021-05-06 09:15 | Outpatient (CLI) | payer OTHER, SELFPAY ==
[2021-05-06 08:57] VITALS: BMI 20.6
[2021-05-06 12:27] LABS: Absolute Lymphocyte Count 1.69 X10^3/uL (0.83-4.51); Basophil# 0.05 X10^3/uL; Basophil% 0.9 % (0-1); Eosinophil# 0.12 X10^3/uL; Eosinophils% 2.3 % (0-5); Hematocrit 42.5 % (37-47); Hemoglobin 14.2 g/dL (12.0-15.0); Lymphocyte # 1.69 X10^3/ul (0.83-4.51); Lymphocyte % 31.7 % (19-41); Mean Corp Hgb Conc 33.4 g/dL (32-36); Mean Corpuscular Hgb 30.9 pg (27.0-32.0); Mean Corpuscular Volume 92.4 fL (81-99); Mean Platelet Vol. 10.2 fl (6.2-12.0); Monocyte# 0.44 X10^3/uL; Monocyte% 8.3 % (0-10); NRBC Flagged by Analyzer 0 % (0-5); Neutrophil # 3.01 X10^3/uL (2.7-7.7); Neutrophil % 56.4 % (47-70); Platelet Count 323 K/mm3 (150-450); RBC Distribution Width CV 12.3 % (11.6-14.6); RBC Distribution Width SD 41.7 fl (35.1-43.9); White Blood Count 5.3 K/mm3 (4.4-11.0)
[2021-05-06 12:41] LABS: AST(SGOT) 13 U/L (15-37); Alanine Aminotransfer ALT/SGPT 19 U/L (13-56); Albumin, Serum 3.6 g/dL (3.2-5.0); Alkaline Phosphatase 72 U/L (45-117); Anion Gap 6 (5-15); BUN 13 mg/dL (7-18); BUN/Creat Ratio 15.1 RATIO (10-20); Calcium,Total 8.4 mg/dL (8.5-10.1); Chloride 109 mmol/L (98-107); Cholesterol 169 mg/dL (200); Creatinine, Serum 0.86 mg/dL (0.55-1.02); EST Glomerular Filtration Rate 78 mL/min (>60); Est Glom Filt Rate - Afr Amer 94 mL/min (>60); Globulin 3.5 g/dL (2.2-4.2); Glucose 89 mg/dL (74-106); High Density Lipoprotein 57 mg/dL; Potassium 4.2 mmol/L (3.5-5.1); Protein, Total 7.1 g/dL (6.4-8.2); Sodium Level 141 mmol/L (136-145); Triglycerides 70 mg/dL; Very Low Density Lipoprotein 14 mg/dL (5-40)
== END ==
PROVIDERS: PCP Internal Medicine; Visit Provider Internal Medicine
DX: Z00.00 Encounter for general adult medical examination without abnormal findings (principal)
CPT/HCPCS: 36415; 80053; 80061; 85025

== ENCOUNTER → 2021-10-30 08:21 | Outpatient (CLI) | payer OTHER, SELFPAY ==
[2021-05-06 08:57] VITALS: BMI 20.6
--- NOTE | 2021-10-30 08:26 | BI_ITS ---
MAMMOGRAPHY - BILATERAL SCREENING REASON FOR EXAM: Female, 41 years old. Routine annual screening examination. PERTINENT HISTORY: Non-contributory. TECHNIQUE: Digital bilateral breast mic (3D mammographic acquisition) in the CC and MLO projections. 2-D mediolateral oblique (MLO) and craniocaudad (CC) views of both breasts were obtained. CAD: Full Field Digital Mammography with Computer Added Detection was performed. COMPARISON: Comparison is made with prior study dated 10/29/2020. FINDINGS: Breast Composition: The breasts are heterogeneously dense, which may obscure small masses. There are no dominant masses or suspicious calcifications. No other significant abnormalities are identified. There has been no significant change since the prior study. BI/SCRN MAMM (CAD)W/MIC BILAT IMPRESSION: Stable bilateral screening mammogram. Yearly follow-up mammogram recommended. (A) ASSESSMENT CATEGORY: BIRADS Category 1: Negative. A letter regarding these results will be sent to the patient by the facility within 30 days. Approximately 10% of breast cancers are not detected by mammography. A normal mammogram should not delay biopsy of a clinically suspicious abnormality. [id number] Electronically Signed: Rajat Arevalo MD at 9:12 EST , Service support ,
== END ==
PROVIDERS: PCP Internal Medicine; Visit Provider Internal Medicine
DX: Z12.31 Encounter for screening mammogram for malignant neoplasm of breast (principal)
CPT/HCPCS: 77063; 77067

== ENCOUNTER → 2021-11-12 15:15 | Outpatient (CLI) | payer OTHER, SELFPAY | PROVIDERS: PCP Internal Medicine; Visit Provider Physician Assistant Surgical | DX: U07.1 COVID-19 (principal) | CPT/HCPCS: 87635; U0005; U0003 ==

== ENCOUNTER 2021-11-19 12:48 | Outpatient (CLI) | payer OTHER, SELFPAY | END 2021-11-19 23:59 | disposition short-term general hospital (02) | LOC: LABSPEC 12:49 | PROVIDERS: PCP Internal Medicine; Referring Provider Physician Assistant Surgical; Visit Provider Physician Assistant Surgical | DX: Z11.52 Encounter for screening for COVID-19 (principal) | CPT/HCPCS: 87635; U0003; U0005 ==

== ENCOUNTER 2021-12-26 14:21 | Outpatient (CLI) | payer OTHER, SELFPAY ==
[2021-12-31 00:06] LABS: Chlamydia By Nucleic Acid AMP Negative (Negative)
[2021-12-31 15:05] LABS: Gonococcus By Nucleic Acid AMP Negative (Negative)
[2022-01-02 14:25] LABS: HPV APTIMA, High Risk Negative (Negative)
== END 2021-12-26 23:59 | disposition home or self-care (01) ==
LOC: LABSPEC 14:22
PROVIDERS: PCP Internal Medicine; Visit Provider Nurse Practitioner Women's Health
DX: Z12.4 Encounter for screening for malignant neoplasm of cervix (principal); Z11.3 Encounter for screening for infections with a predominantly sexual mode of transmission
CPT/HCPCS: 87491; 87591; 87624; 88175; G0145

== ENCOUNTER 2022-01-02 07:51 | Outpatient (CLI) | payer OTHER, SELFPAY ==
--- NOTE | 2022-01-02 07:54 | US_ITS ---
STUDY: ULTRASOUND OF THE FEMALE PELVIS - COMPLETE REASON FOR EXAM: Female, 41 years old. Abnormal uterine bleeding LMP: 12/25/2021. TECHNIQUE: Transabdominal and Transvaginal TECHNICAL QUALITY: Adequate. COMPARISON: None. FINDINGS: The uterus is anteverted and is in a midline position. The uterus measures 7.9 cm x 4.9 cm x 3.7 cm. There is a Nabothian cyst of the cervix. The endometrium measures 5.5 mm in thickness, and is heterogeneous (striated). There is no demonstrated endometrial mass. There is a 1.4 cm x 1.2 cm x 1.3 cm fibroid just deep to the endometrium. I.U.D. - The patient does not have an I.U.D. The right ovary is visualized. The right ovary measures 2.4 cm x 1.9 cm x 1.6 cm. There is no right ovarian cyst or ovarian mass. There is no visualized right adnexal mass or complex lesion. There is normal arterial and normal venous vascularity. The left ovary is visualized. The left ovary measures 2.5 cm x 2.1 cm x 1.8 cm. There is no left ovarian cyst or ovarian mass. There is no visualized left adnexal mass or complex lesion. There is normal arterial and normal venous vascularity. There is no fluid in the cul-de-sac. The pre void volume of the bladder was 310.5 ml. US/Pelvic (Non ) IMPRESSION: 1.4 cm x 1.2 cm x 1.3 cm fibroid just deep to the endometrium. Electronically Signed: Rajat Arevalo MD at 15:20 EST ,
--- NOTE | 2022-01-02 07:54 | US_ITS ---
STUDY: ULTRASOUND OF THE FEMALE PELVIS - COMPLETE REASON FOR EXAM: Female, 41 years old. Abnormal uterine bleeding LMP: 12/25/2021. TECHNIQUE: Transabdominal and Transvaginal TECHNICAL QUALITY: Adequate. COMPARISON: None. FINDINGS: The uterus is anteverted and is in a midline position. The uterus measures 7.9 cm x 4.9 cm x 3.7 cm. There is a Nabothian cyst of the cervix. The endometrium measures 5.5 mm in thickness, and is heterogeneous (striated). There is no demonstrated endometrial mass. There is a 1.4 cm x 1.2 cm x 1.3 cm fibroid just deep to the endometrium. I.U.D. - The patient does not have an I.U.D. The right ovary is visualized. The right ovary measures 2.4 cm x 1.9 cm x 1.6 cm. There is no right ovarian cyst or ovarian mass. There is no visualized right adnexal mass or complex lesion. There is normal arterial and normal venous vascularity. The left ovary is visualized. The left ovary measures 2.5 cm x 2.1 cm x 1.8 cm. There is no left ovarian cyst or ovarian mass. There is no visualized left adnexal mass or complex lesion. There is normal arterial and normal venous vascularity. There is no fluid in the cul-de-sac. The pre void volume of the bladder was 310.5 ml. US/Transvaginal Non- IMPRESSION: 1.4 cm x 1.2 cm x 1.3 cm fibroid just deep to the endometrium. Electronically Signed: Rajat Arevalo MD at 15:20 EST ,
== END 2022-01-02 23:59 | disposition home or self-care (01) ==
LOC: US 07:53
PROVIDERS: PCP Internal Medicine; Referring Provider Nurse Practitioner Women's Health; Visit Provider Nurse Practitioner Women's Health
DX: N92.0 Excessive and frequent menstruation with regular cycle (principal)
CPT/HCPCS: 76830; 76856

== ENCOUNTER 2022-04-29 06:47 | Day surgery (SDC) | payer OTHER, SELFPAY ==
[2022-04-24 11:29] LABS: Hematocrit 43.9 % (37-47); Hemoglobin 14.6 g/dL (12.0-15.0); Mean Corp Hgb Conc 33.3 g/dL (32-36); Mean Corpuscular Hgb 30.7 pg (27.0-32.0); Mean Corpuscular Volume 92.4 fL (81-99); Mean Platelet Vol. 9.5 fl (6.2-12.0); Platelet Count 283 K/mm3 (150-450); RBC Distribution Width CV 12.2 % (11.6-14.6); RBC Distribution Width SD 41.8 fl (35.1-43.9); Red Blood Count 4.75 M/mm3 (4.2-5.4); White Blood Count 4.6 K/mm3 (4.4-11.0)
[2022-04-24 11:49] LABS: Magnesium 2.2 mg/dL (1.6-2.6)
[2022-04-29] VITALS (12 sets, daily range): BP systolic 123–155; BP diastolic 76–95; PULSE 53–84; RESP 16–18; TEMP 36.3–37.1; O2SAT 96–100; BMI 22.2
--- NOTE | 2022-04-29 07:10 | HP.PCM_ITS ---
History and Physical Date of Admission: 04/29/22 MR#:[id number]:[id number]: JAILYN DAOep #:[id number] Provider:Dr. 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: No Is patient in pain?: No Allergies No Known Allergies Allergy (Verified 04/23/22 11:21) Medications norethindrone acetate 5 mg tablet 5 mg PO DAILY #30 tab 04/23/22 [Rx Confirmed 04/23/22] Post menopausal: No Patient : No : No PFSH Medical History Dysplasia of cervix Right ureteral calculus Scalp cyst Surgical History History of History of extraction of renal calculus History of loop electrosurgical excision procedure (LEEP) of cervix Family History Grandfather Hypertension Grandmother Diabetes Hypertension Aunt H/O: hysterectomy Cervical cancer Social History Smoking Status: Never smoker alcohol intake: never substance use type: does not use what type of physical activity do you participate in: none HPI SURGICAL CONSULT Details: JAILYN DAO is a 41 year old G3, P3 who presents for discussion about heavy periods irregular periods and menopause symptoms. She states that her menses are becoming closer together and lasting slightly longer than usual she also states that her periods are either very heavy or irregular and very light. Ultrasound shows a 8 cm uterus with a fibroid present that is breaching the endometrium. The patient has a history of a section and the 2 vaginal deliveries and an Essure procedure. She has been on Aygestin on and off for the last several months without much resolution of her symptoms she is now ready to discuss hysterectomy. Female Reproductive History Menopausal Symptoms: No hot flashes and No night sweats Pregancy History 3 Elective abortions Hx Para 2 Spontaneous abortions Hx # Term Pregnancies 2 Ectopic pregnancies Hx # Pregnancies Multiple births # of living children 2 ROS Const ROS Unobtainable: All systems reviewed & are unremarkable except as noted in H Constitutional: Reports as per HPI; Denies fatigue, increased appetite, poor appetite, night sweats, weight gain or weight loss Cardio Card: Denies chest pain Resp Resp: Reports system reviewed and no additional complaints, except as documented; Denies cough GI GI: Reports as per HPI : Reports as per HPI and other; Denies difficulty voiding, dysuria, hematuria, hot flashes, nipple discharge, pelvic pain, prolapse symptoms, urinary frequency, urinary incontinence, urinary urgency, vaginal discharge, vaginal dryness, vaginal odor or vaginal pruritus Skin Skin/Breast: Denies changing lesions, breast mass, breast pain, breast skin changes or nipple discharge Psych Psych: Reports system reviewed and no additional complaints, except as documented Exam Const General: cooperative, healthy appearing, comfortable and no acute distress HENMT Head: normal to inspection Neck Neck: normal visual inspection Resp Effort & Inspection: normal respiratory effort Skin General: no rashes or lesions noted Neuro General: patient alert, patient awake and patient oriented x3 Extrem General: normal to inspection Psych Appearance: grossly normal Speech and Movement: speech and movement normal Coding Level of Care Code Off vis,est,level 5 Diagnoses PCOS (polycystic ovarian syndrome) E28.2 Menorrhagia with regular cycle N92.0 Fibroid uterus D25.9 Assessment and Plan Assessment and Plan (1) PCOS (polycystic ovarian syndrome): Status: Chronic Comment: spironolactone (2) Menorrhagia with regular cycle: Status: Acute Comment: <2cm fibroid. Failed OCP; expelled IUD (3) Fibroid uterus: Status: Acute Plan - Dr. Miya Enriquez, DO: Thorough discussion the patient has decided to proceed with a total robotic hysterectomy bilateral salpingectomy and cystoscopy this is being performed due to history of section and possible endometriosis. After discussing the patient's diagnosis and treatment plan options, patient wishes to proceed with surgical management. I have discussed with the patient the risks, benefits, and alternatives of the procedure which include but are not limited to risks of anesthesia, bleeding, infection, possible damage to bowel, bladder, or surrounding vasculature which could lead to additional surgery to evaluate any complications. Patient agrees to procedure and wishes to proceed. ACOG/uptodate references given for additional information regarding procedure. Plan Details Other Medications: New: norethindrone acetate (Aygestin) 5 mg PO DAILY 30 tabs 1RF UPDATE- I have seen the patient and performed any clinically relevant updates to the history and physical exam. Miya Enriquez,
--- NOTE | 2022-04-29 07:14 | PCM.DC ---
Discharge Instructions Diet Discharge Diet: No restrictions Activity May resume sexual activity in: 6 weeks Weight Bearing Status: Full weight bearing Dressing / Incision Call your doctor if your incision/area has: Continuous Slow Oozing, Sudden Increased Bleeding, Increased Pain/ Swelling, Increased Redness and Foul Smelling Discharge Call your doctor if you observe: Fever of 101 or Higher, Using more than 1 pad per hour, Shortness of breath, Chest pain and Uncontrolled pain Suture Line Care: Avoid Pulling/Pushing and Avoid Pinching/Bending Remove Dressing in: 1 week (if present) Cleanse incision/area with: Soap & Water and Keep Dressing Clean & Dry Follow Up Care Please Follow Up With: Miya Enriquez DO When: Call to make an appointment with your doctor for a postop visit in 2 and 6 weeks Test Results: Test results from this visit will be discussed in further detail at your follow-up appointment, if applicable. Discharge Plan Admission Primary Reason for Your Visit: Hysterectomy Attending Provider: Miya Enriquez Primary Care Provider: Galina Zavala NP Discharge Orders/Prescriptions Prescriptions: New ibuprofen 800 mg tablet 800 mg PO Q8H PRN (Reason: pain) 7 Days Qty: 30 RF: 0 oxycodone-acetaminophen [Percocet] 5-325 mg tablet 1 tab PO Q4H PRN (Reason: pain) 7 Days Qty: 30 RF: 0 Discontinued norethindrone acetate [Aygestin] 5 mg tablet 5 mg PO DAILY Qty: 30 RF: 1 Referrals / Follow Up: Galina Zavala NP, [employer] [Primary Care Provider] - Disposition Disposition (needs filled in before D/C Order can be placed): Home, Self Care
[2022-04-29 07:16] LABS: Internal QC Validated? YES +Cl - CLEAR BKGD; Pregnancy, Urine Negative Negative
[2022-04-29] MEDS: Lactated Ringers 1,000 ML 40 ML IV (07:17)
[2022-04-29] MEDS: Celecoxib 200 MG Capsule 400 MG PO (07:17)
[2022-04-29] MEDS: Gabapentin 600 MG Tablet PO (07:18)
[2022-04-29] MEDS: Acetaminophen 500 MG Tablet 1000 MG PO (07:18)
[2022-04-29 07:30] LABS: Bedside Glucose 79 mg/dL (74-106)
--- NOTE | 2022-04-29 07:30 | HYST_PTH ---
PATIENT: JAILYN DAO LOC: [facility] [place] U#:[id number] AGE/SX: 41/F ROOM: RE04/29/[address]: Dr. Miya Enriquez DO : 1980 BED: DIS: 04/29/2022 SPEC #: [id number] RECD: 04/29/22 11:42 STATUS: HERB LEONARDChriss #: [id number] KAMRYN: 04/29/22 07:[address]: Miya Enriquez DEPT: SURGICAL PATHOLOGY RECD BY: Korey Jaimes ENTERED: 04/29/22 12:12 SP TYPE: HYSTERECT OTHR DR: Galina Zavala, [employer] Tissues: Uterus, NOS Procedures: Surgery Specimen Level V HEADER OPERATION: ERAS, total robotic hysterectomy, salpingectomy, cystoscopy PRE-OP DIAGNOSIS: Polycystic ovarian syndrome, menorrhagia, fibroid uterus TISSUE SUBMITTED: Uterus, cervix, bilateral fallopian tubes MICROSCOPIC DIAGNOSIS Uterus, cervix and bilateral fallopian tubes, hysterectomy and bilateral salpingectomy: Cervix ? chronic cystic cervicitis. Endometrium ? proliferative endometrium. Myometrium ? focal adenomyosis. Bilateral fallopian tubes - no pathologic diagnosis. Left paratubal cyst. SJ:rg 04/30/2022 MICROSCOPIC DESCRIPTION Slides are reviewed. GROSS DESCRIPTION Received in fixative is one container labeled with the patient's name and designated uterus, cervix, bilateral fallopian tubes. The specimen consists of a hysterectomy specimen consisting of uterus with cervix and attached bilateral fallopian tubes. The uterus with cervix weighs 63 gm and measures 8 x 5 x 3.5 cm. The serosal surface is ramirez, glistening and unremarkable. The ectocervical mucosa is unremarkable. The external os is circular in contour. The endocervical canal measures 3 cm in length and the endocervical mucosa is ramirez, glistening and unremarkable. The triangular endometrial cavity measures 4 cm in length and 2.5 cm in width. The left cornu shows a portion of metallic coil consistent with Essure device. The endometrium is ramirez, glistening without any mass lesion and measures 0.1 cm in thickness. Sections of the uterine wall do not reveal any mass lesion and measures up to 2 cm in thickness. The right fallopian tube measures 7 cm in length and up to 0.5 cm in diameter. The fimbrial end is identified. Sections reveal unremarkable cut surfaces. The proximal portion of the fallopian tube shows a metallic coil device consistent with Essure device. The left fallopian tube measures 7.5 cm in length and 0.5 cm in diameter and is similar appearance to right. A paratubal cyst is also noted measuring 0.5 cm in greatest dimension. The proximal portion of the fallopian tube shows a metallic coil device consistent with Essure device. Gauge Maker Apprentice sections are submitted in eight cassettes as follows: 1 - anterior cervix, 2 - posterior cervix, 3 & 4 - anterior uterine wall, 5 & 6 - posterior uterine wall, 7 ? right fallopian tube, 8 ? left fallopian tube and paratubal cyst. / AJAY:raj 04/29/2022 TC:5 CPT: 83042
[2022-04-29] MEDS: Cefazolin 2 GM in 0.9% Normal Saline 100 ML IV (07:47)
--- NOTE | 2022-04-29 09:03 | OP.PCM_ITS ---
Report of Operation Date of Procedure: 04/29/22 Pre-Operative Diagnosis: menorrhagia, prior section, endometriosis, fi broid uterus Post-Operative Diagnosis: menorrhagia, prior section, endometriosis, fibroid uterus Surgery/Procedure Performed:: total robotic hysterectomy, bilatral salpingectomy, cystoscopy Description of Surgical Findings:: Findings: 8 cm size uterus, normal appearing ovaries and tubes. On exploration of the abdominal cavity the uterus, adnexa, bowel, and liver were found to be normal. Cystoscopy showed no evidence of leaking at approximately 250 cc of normal saline, positive ureteral orifices and jet flow are seen and no suture material was appreciated in the bladder. Specimens removed: Uterus and cervix, bilateral fallopian tubes Reason for surgery: This is a 41-year-old G3, P3 who presented to my office with a with history of pelvic pain, heavy menses, and failed conservative management. The planned procedure is for a robotic hysterectomy the risks benefits and alternatives were discussed with the patient the patient had a clear understanding of the procedure and a consent form was signed. Surgeon: Miya Enriquez pediatric social worker: Christian Valiente Type of Anesthesia: General Anesthesiologist: Omar Villela Specimen's removed: uterus, fallopian tubes, cervix Estimated Blood Loss (mL): 50cc Fluids Replaced: 900cc Description of Procedure: Procedure: The patient was placed in the dorsal low lithotomy position and prepped and draped in the normal sterile fashion both abdominally and in the perineum. Her legs were placed in stirrups a Vieyra catheter was inserted into the urethra without difficulty. A weighted speculum was placed in the vagina and a single- tooth tenaculum was used to grasp the anterior lip of the cervix. An Advincula uterine manipulator was inserted through the cervix without complication. It was then tied into place at the 2 and 10:00 locations on the cervix. Gloves were changed and attention was turned towards the abdomen. Approximately 23 cm above the pubic symphysis in the midline, and after Marcaine injection, a 8 mm incision was made. An 8 mm trocar was inserted through the laparoscope, then inserted into the abdomen under direct visualization using the laparoscope. Good abdominal placement was noted and no complications were appreciated. An air seal device was utilized to create pneumoperitoneum. At 12 cm lateral to the midline on the left and right sides 8 mm accessory ports were placed. Next a left upper quadrant 8 mm administrative library assistant port site was placed. The patient was placed in steep Trendelenburg position. The robot was docked. The hysterectomy was initiated first by taking down the round ligament on each side using the vessel sealer device. The fallopian tubes were removed by cauterizing and excising the underlying mesosalpinx from the fimbriated end to the level of the cornua. The broad ligament was then and taken down using the vessel sealer device. Next the bladder flap was taken down without complication. This was done using monopolar cautery to the level of the cervical vaginal junction. After the bladder flap was created, uterine vessels were then isolated and cauterized using the vessel sealer device and EndoShears. At this point the uterine vessels were taken down further starting from the ascending branch, dissecting along the edges of the cervix to the level of the cervical vaginal junction with hemostasis appreciated. The cervical vaginal junction was then using monopolar cautery in a circumferential pattern across the superior aspect of the cervix. The specimen was delivered through the vagina and sent to pathology. The remaining vaginal cuff was then closed using V lock suture in 2 layers. This was performed in a running technique. Excellent hemostasis was obtained and good closure was noted. Irrigation was then performed. All operative sites were noted to be hemostatic. A cystoscopy was performed with a 70 degree cystoscope through the urethra into the bladder without complication. The bladder was instilled with approximately 250 cc of normal saline. Intraoperative images were made. Ureteral orifices and jets were identified. No suture material was appreciated in the bladder. The bladder was then drained and cystoscope was removed. The abdominal cavity was again examined using the laparoscope after the robot was undocked. All operative sites were noted to be hemostatic. The trochars were removed under direct visualization without complication and pneumoperitoneum was reduced. At this point the skin was then closed using 4-0 Monocryl subcuticular stitch and sealed with surgical glue. The patient tolerated the procedure well sponge lap and needle counts were correct x2 the patient was taken to the recovery room in stable condition. Grafts/Implants Used: none Complications none Admit VTE Documentation VTE Present on Admission: Yes VTE Mechan Device Prophylaxis: SCD's VTE Pharm Prophylaxis ordered?: No Reason prophylaxis not ordered:: Treatment Not Indicated
[2022-04-29] MEDS: Lactated Ringers 1,000 ML 100 ML IV (13:14)
[2022-04-29] MEDS: HYDROcodone Bitartrate/Apap 5/325 Tablet PO (14:55)
== END 2022-04-29 15:26 | disposition home or self-care (01) ==
LOC: SDC 06:47 → AC 06:47
PROVIDERS: Anesthesiology; PCP Nurse Practitioner Family; Referring Provider Obstetrics & Gynecology; Visit Provider Obstetrics & Gynecology
PROC: 0UT90ZZ Resection of Uterus, Open Approach (ICD-10-PCS; CPT 58571; principal; 2022-04-29 07:10)
DX: N80.0 Endometriosis of uterus (principal); N72 Inflammatory disease of cervix uteri; N83.8 Other noninflammatory disorders of ovary, fallopian tube and broad ligament; E28.2 Polycystic ovarian syndrome
CPT/HCPCS: 58571; 36415; 81025; 82962; 83735; 85027; 86850; 86900; 86901; 88307; J7120; J2405; J3475; J3490

== ENCOUNTER 2022-07-23 19:06 | Emergency (ER) | payer OTHER, SELFPAY ==
[2022-07-23 19:06] VITALS: BP 120/67; PULSE 80; RESP 18; TEMP 36.6; O2SAT 100; BMI 20.5
--- NOTE | 2022-07-23 20:38 | EDS_ITS ---
HPI History of Present Illness Chief Complaint: Head Injury Informant: patient Onset/Context/Timing Onset: Today and Hours Mechanism/Context: Blunt Injury Current Severity: Mild Maximum Severity: Mild Associated Symptoms Associated Symptoms: Negative for Parasthesias, Weakness, Loss of function, Inability to ambulate, Loss of consciousness or Amnesia Narrative Narrative: 41-year-old female who works in an area form. A metal bar came off the wall and struck. Left forehead. She has a small laceration that does not need to be repaired. She has no LOC. No severe headache. States she needs her tetanus updated. This will be a workers comp injury. Tetanus Immunization: >10 years Prior similar symptoms: No Recent Illness/Hospitalization: No PFSH PFSH Medical History Anemia Arthritis Cancer Dysplasia of cervix Migraine headache Right ureteral calculus Scalp cyst Wears glasses Home Medications psyllium husk 0.4 gram capsule (Metamucil) 0.4 g PO DAILY 06/11/22 [History Last Taken Unknown] Allergy/AdvReac Type Severity Reaction Status Date / Time acetaminophen [From Percocet] AdvReac Mild rash Verified 07/23/22 19:10 ibuprofen AdvReac Mild Rash Verified 07/23/22 19:10 oxycodone [From Percocet] AdvReac Mild rash Verified 07/23/22 19:10 Family History Grandfather Hypertension Grandmother Diabetes Hypertension Aunt H/O: hysterectomy Cervical cancer Surgical History History of History of extraction of renal calculus History of loop electrosurgical excision procedure (LEEP) of cervix History of robot-assisted laparoscopic hysterectomy (~04/29/22) Social History Smoking Status: Never smoker alcohol intake: never substance use type: does not use what type of physical activity do you participate in: none ROS ROS ED ROS Narrative No recent illness. Review of Systems ROS Unobtainable: Denies due to encephalopathy Constitutional Constitutional ED: Denies chills Eyes Eyes: Denies blurry vision ENT ENT ED: Denies ear pain Cardiovascular Cardiovascular: Denies chest pain Respiratory/Chest Respiratory/Chest: Denies cough Gastrointestinal Gastrointestinal: Reports nausea; Denies abdominal pain, constipation, diarrhea, melena or vomiting Genitourinary Genitourinary ED: Denies dysuria Musculoskeletal Musculoskeletal: Denies arthralgias Integumentary Denies abscess Neurologic Neurologic: Denies headache(s) Psychiatric Psychiatric: Denies anxiety Endocrine Endocrinology: Denies cold intolerance Hematologic/Lymphatic Hematologic/Lymphatic: Denies easy bleeding Allergic/Immunologic Allergic/Immunologic ED: Denies mouth swelling or tongue swelling EXAM Physical Exam Narrative Exam Narrative: 21-year-old female no acute distress. Vital signs stable afebrile. H EENT exam give dry reactive light. TMs normal. No hemotympanum. Small contusion and superficial laceration about 2 cm left forehead. No bleeding. Does not gape. Does not be repaired. Will be cleaned and Steri-Stripped. No other facial trauma. Scalp nontender. C-spine nontender. Normal range of motion. Trachea midline. Lungs clear to auscultation. Heart regular rhythm no murmur. Chest wall nontender. Abdomen soft nontender. Pelvic girdle intact. Moving all 4 extremities. 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 Dorsi plantarflexion intact. Back nontender. Neurologic exam is normal. GCS of 15. No focal motor deficits. Ambulates without any difficulty. NIH 0. Const Vital Signs: 07/23/22 19:06 Temperature 97.9 F Temperature Source Temporal Pulse Rate 80 Respiratory Rate 18 Blood Pressure 120/67 Blood Pressure Mean 84 Pulse Ox 100 Oxygen Delivery Method Room Air Positive well nourished and well developed; Negative for obese, cachectic, contractures or unkempt General Appearance ED: well developed and NAD; Negative for unkempt, cachectic, contractures or other Nutritional Appearance: Negative for cachectic or obese HEENT Reports TM's clear trauma and tenderness; Negative for atraumatic Tympanic Membrane ED: Yes TM's clear Eyes PERRL and EOMs intact bilaterally General Eye ED: Negative for other Neck full ROM General: Negative for tenderness or other Chest Wall inspection of chest normal and palpation of chest normal Breast/Axilla Inspection: Negative for other Resp normal respiratory effort and clear to auscultation bilaterally Effort and Inspection: Negative for pain with movement Auscultation: Negative for rales, rhonchi, wheezes or diminished lung sounds Cardio regular rhythm, S1 normal heart sound, S2 normal heart sound and no murmurs Rate: regular rate Rhythm: Negative for abnormal rhythm GI normal to inspection, nondistended, normoactive bowel sounds, non-tender, non- distended and no masses Inspection: Negative for abdominal distention Palpation: soft; Negative for tender Back/Spine normal to inspection and no thoracic nor lumbar tenderness General Back: Negative for CVA tenderness Thoracic Spine / Upper Back: Negative for thoracic spinal tenderness Extremity normal to inspection and full ROM General Extremety ED: Negative for deformity, edema or tenderness General Extremity: Negative for deformity or edema Neuro oriented x3, CN's II-XII intact bilaterally, moves all extremities, no focal motor deficits and no sensory deficits noted Neuro Narrative: GCS 15. NIH 0. No motor deficits. Awake alert. Knows date, month, year and president. Walks without any difficulty. No ataxia. Negative Romberg. [place] Coma Scale: document GCS findings Spontaneous Obeys Commands Oriented 15 Sensorium / Orientation: alert, oriented to person, oriented to place and oriented to time; Negative for orientation impaired, lethargic or stuporous Motor Exam: strength 5/5 throughout Psych mental status grossly normal and thought process normal Appearance: Negative for unkempt Attitude: No agitated Mood & Affect: Negative for depressed, anxious or tearful Skin no rashes or lesions noted and No no wounds Rashes: No rashes noted Wounds: wounds noted MDM MDM MDM Narrative Medical decision making narrative: 41-year-old with left forehead closed head injury with superficial laceration. Laceration be cleaned and dressed. Tetanus to be updated. She has a normal neurologic exam. Was not knocked out. Is on no blood thinners. She will be discharged home with head injury instructions. This is a workers comp visit. Discharge Plan Triage Chief Complaint: Head Injury ED Provider: Christian Gonzales Dx/Rx/DC Orders Clinical Impression: Closed head injury Instructions: ED Head Injury (Adult) Prescriptions: No Action psyllium husk [Metamucil] 0.4 gram capsule 0.4 g PO DAILY Primary Care Provider: Galina Zavala NP Referrals: [facility] [Group of Physicians] - As Needed Galina Zavala NP, [employer] [Primary Care Provider] - Activity Restrictions/Additional Instructions: Keep wound clean. Apply antibiotic ointment daily. Clean with soap and water daily. Motrin and Tylenol for pain. Ice to your forehead. Return if intractable vomiting, not acting right or severe headache. He did not need a CAT scan at this time. . Tetanus was updated and is now good for 10 years. Disposition Disposition: Home, Self Care
[2022-07-23] MEDS: Diphth,Pertuss(Acell),Tet Vac 0.5 ML Vial IM (20:52)
[2022-07-23 21:09] VITALS: BP 126/78; PULSE 78; RESP 14; TEMP 37.2; O2SAT 99
== END 2022-07-23 21:09 | disposition home or self-care (01) ==
PROVIDERS: Emergency Provider Emergency Medicine; PCP Nurse Practitioner Family; Visit Provider Emergency Medicine
DX: S09.90XA Unspecified injury of head, initial encounter (principal); W22.09XA Striking against other stationary object, initial encounter; Z23 Encounter for immunization
CPT/HCPCS: 90471; 90715; 99282

== ENCOUNTER → 2022-10-31 | Outpatient (CLI) | payer OTHER, SELFPAY ==
--- NOTE | 2022-10-31 08:25 | BI_ITS ---
MAMMOGRAPHY - BILATERAL SCREENING REASON FOR EXAM: Female, 42 years old. Routine annual screening examination. PERTINENT HISTORY: Non-contributory. TECHNIQUE: Digital bilateral breast mic (3D mammographic acquisition) in the CC and MLO projections. 2-D mediolateral oblique (MLO) and craniocaudad (CC) views of both breasts were obtained. CAD: Full Field Digital Mammography with Computer Added Detection was performed. COMPARISON: Comparison is made with prior examination of 10/30/2021 and 10/29/2020. FINDINGS: Breast Composition: The breasts are heterogeneously dense, which may obscure small masses. There are no dominant masses or suspicious calcifications. No other significant abnormalities are identified. There has been no significant change since the prior study. BI/SCRN MAMM (CAD)W/MIC BILAT IMPRESSION: Stable bilateral screening mammogram. Yearly follow-up mammogram recommended. (A) ASSESSMENT CATEGORY: BIRADS Category 1: Negative. A letter regarding these results will be sent to the patient by the facility within 30 days. Approximately 10% of breast cancers are not detected by mammography. A normal mammogram should not delay biopsy of a clinically suspicious abnormality. [id number] Electronically Signed: Rajat Arevalo MD at 15:12 EST ,
== END | disposition home or self-care (01) ==
LOC: OPBI 08:25
PROVIDERS: PCP Nurse Practitioner Family; Visit Provider Nurse Practitioner Women's Health
DX: Z12.31 Encounter for screening mammogram for malignant neoplasm of breast (principal)
CPT/HCPCS: 77063; 77067

== ENCOUNTER → 2023-11-02 | Outpatient (CLI) | payer OTHER, SELFPAY ==
--- NOTE | 2023-11-02 07:53 | BI_ITS ---
MAMMOGRAPHY - BILATERAL SCREENING REASON FOR EXAM: Female, 43 years old. Routine annual screening examination. PERTINENT HISTORY: Non-contributory. TECHNIQUE: Digital bilateral breast mic (3D mammographic acquisition) in the CC and MLO projections. 2-D mediolateral oblique (MLO) and craniocaudad (CC) views of both breasts were obtained. CAD: Full Field Digital Mammography with Computer Added Detection was performed. COMPARISON: Comparison is made with prior study dated October 31, 2022 and October 30, 2021. FINDINGS: Breast Composition: The breasts are heterogeneously dense, which may obscure small masses. There are no dominant masses or suspicious calcifications. No other significant abnormalities are identified. There has been no significant change since the prior study. BI/SCRN MAMM (CAD)W/MIC BILAT IMPRESSION: Stable bilateral screening mammogram. Yearly follow-up mammogram recommended. (A) ASSESSMENT CATEGORY: BIRADS Category 1: Negative. A letter regarding these results will be sent to the patient by the facility within 30 days. Approximately 10% of breast cancers are not detected by mammography. A normal mammogram should not delay biopsy of a clinically suspicious abnormality. [id number] Electronically Signed: Rajat Arevalo MD at 8:46 EST ,
== END | disposition home or self-care (01) ==
LOC: OPBI 07:52
PROVIDERS: PCP Nurse Practitioner Family; Referring Provider Obstetrics & Gynecology; Visit Provider Obstetrics & Gynecology
DX: Z12.31 Encounter for screening mammogram for malignant neoplasm of breast (principal)
CPT/HCPCS: 77063; 77067

== ENCOUNTER → 2024-05-04 | Outpatient (CLI) | payer OTHER, SELFPAY ==
[2024-05-04 10:14] LABS: Vitamin D,25 Hydroxy 29.8 ng/mL
[2024-05-04 17:09] LABS: Cholesterol 139 mg/dL (200); Estradiol 164.7 pg/mL; Glucose 105 mg/dL (74-106); High Density Lipoprotein 43 mg/dL; T4 Free Direct 0.92 ng/dL (0.76-1.46); Triglycerides 86 mg/dL; Very Low Density Lipoprotein 17 mg/dL (5-40)
[2024-05-05 08:14] LABS: Thyroid Peroxidase AB < 9 IU/mL (0-34)
== END | disposition home or self-care (01) ==
PROVIDERS: PCP Nurse Practitioner Family; Referring Provider Nurse Practitioner Women's Health; Visit Provider Nurse Practitioner Women's Health
DX: Z13.21 Encounter for screening for nutritional disorder (principal); R63.5 Abnormal weight gain; R23.2 Flushing; Z13.29 Encounter for screening for other suspected endocrine disorder; Z13.220 Encounter for screening for lipoid disorders
CPT/HCPCS: 36415; 80061; 82306; 82670; 82947; 83001; 84439; 84443; 86376

== ENCOUNTER 2024-09-02 05:37 | Day surgery (SDC) | payer OTHER, SELFPAY ==
[2024-09-02] VITALS (12 sets, daily range): BP systolic 115–141; BP diastolic 76–98; PULSE 65–93; RESP 16–18; TEMP 36.3–37.1; O2SAT 94–100; BMI 25.7
[2024-09-02] MEDS: Lactated Ringers 1,000 ML 15 ML IV (06:28)
[2024-09-02] MEDS: Gabapentin 600 MG Tablet PO (06:28)
[2024-09-02] MEDS: Acetaminophen 500 MG Tablet 1000 MG PO (06:28)
[2024-09-02 06:31] LABS: Magnesium 2.4 mg/dL (1.6-2.6)
--- NOTE | 2024-09-02 07:01 | PCM.PRE.AN2 ---
ASA Classification* ASA Classification ASA Classification: 2 Assessment & Plan Anesthesia* Anesthesia Assessment Anesthesia Assessment: Discussed sedation and/or anesthesia options, risks, benefits, and alternatives with patient/parents/legal guardian/POA. Questions invited. The patient/parents/legal guardian/POA seems to understand and agrees to proceed with anesthesia plan. Reviewed the physical assessment, medical history, allergy history and patient home medications list prior to surgery/procedure/anesthetic and documented any changes. Performed airway and anesthesia risk assessments. Anesthesia Type Anesthesia Type: General (see written pre anesthesia record for full assessment) and Block (see written pre anesthesia record for full assessment) Anesthesia Focused Assessment* Temperature: 98.7 F Pulse Rate: 85 Blood Pressure: 120/79 Respiratory Rate: 18 Pulse Ox: 100 Airway Assessment Mouth opens: >3 cm Mallampati Score: II Focused Labs Anesthesia Preop lab: CBC WBC 4.6 K/mm3 (4.4-11.0) 04/24/22 11:03 RBC 4.75 M/mm3 (4.2-5.4) 04/24/22 11:03 Hgb 14.6 g/dL (12.0-15.0) 04/24/22 11:03 Hct 43.9 % (37-47) 04/24/22 11:03 Plt Count 283 K/mm3 (150-450) 04/24/22 11:03 CHEMISTRY Potassium 4.2 mmol/L (3.5-5.1) 05/06/21 09:16 Sodium 141 mmol/L (136-145) 05/06/21 09:16 Magnesium 2.4 mg/dL (1.6-2.6) 09/02/24 06:00 BUN 13 mg/dL (7-18) 05/06/21 09:16 Creatinine 0.86 mg/dL (0.55-1.02) 05/06/21 09:16 Glucose 105 mg/dL (74-106) 05/04/24 09:40 POC Glucose 79 mg/dL (74-106) 04/29/22 07:07 TSH 0.60 uIU/mL (0.358-3.74) 05/04/24 09:40 COAG Urine Test Negative Negative 04/29/22 07:01 Pre-Assessment Diagnosis/Proposed Procedure Planned Operative Procedure(s): RIGHT FOOT TARSALMETATARSAL JOINT ARTHRODESIS WITH HARVEST OF CALCANEAL BONE GRAFT,FIRST METATARSAL PHALANGEAL JOINT CAPSULATOMY AND POSS DONNIE OSTEOTOMY Anesthesia History Anesthesia History - interactive project manager: Anesthesia History - interactive project manager Hx Hospitalization No 08/23/24 10:38 Any Problems With Anesthesia No 08/23/24 10:38 Cholinesterase deficiency No 08/23/24 10:38 You/Your Family Experience No 08/23/24 10:38 fever (hyperthermia) with Relationship Recent Exposure to Contagious No 09/02/24 06:23 Disease Does patient have nerve No 08/23/24 10:38 stimulator Patient instructed to have device shut off --Does patient have Pacemaker No 09/02/24 06:23 or ICD? When Was Last Pacemaker Check QUESTION #4 FULL TEXT: You/Your Family Experience fever (hyperthermia) with Anesthesia Last Oral Intake Last Oral intake: Last Oral Intake NPO since 04:15 09/02/24 06:23 Meds taken in AM with sips of No 09/02/24 06:23 water? Meds patient instructed to take am of surgery PONV PONV - interactive project manager: PONV - interactive project manager Female Yes 08/23/24 10:38 HX of Motion Sickness No 08/23/24 10:38 HX of N/V After Surgery No 08/23/24 10:38 Non-Smoker Yes 08/23/24 10:38 Duration of Surgery greater Yes 08/23/24 10:38 than 60 minutes Number of Risk Factors 3 08/23/24 10:38 PONV Score Moderate Risk 08/23/24 10:38 Height & Weight Height & Weight: Anesthesia: Height & Weight Height 5 ft 4 in 09/02/24 06:23 Weight: 68 kg 09/02/24 06:23 Body Mass Index (BMI) 25.7 09/02/24 06:23 Respiratory Assessment Respiratory Assessment - interactive project manager: Respiratory Tract Infection Hx - interactive project manager Hx Respiratory Tract Infection No 08/23/24 10:38 STOP Sleep Apnea STOP Sleep Apnea - interactive project manager: STOP Sleep Apnea - interactive project manager Hx Hypertension No 08/23/24 10:38 Hx Sleep Apnea No 08/23/24 10:38 CPAP BIPAP Do you snore loudly (louder No 08/23/24 10:38 than talking or can be heard Do you often feel tired/ No 08/23/24 10:38 fatigued/ sleepy during daytime? Has anyone observed you stop No 08/23/24 10:38 breathing during sleep? STOP Results Negative 08/23/24 10:38 QUESTION #5 FULL TEXT : Do you snore loudly (louder than talking or can be heard through closed doors)? 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 Specify any problems Hx of Preganancy in last 3 No 08/23/24 10:38 Months Nurse Filling Out Transfusion DSCHRIBER 08/23/24 10:38 & Questions: Date: 08/23/24 08/23/24 10:38 Time: 10:41 08/23/24 10:38 Patient unable to answer at this time (ie. confused, unrespo /Reproduction History /Reproductive History - interactive project manager: /Reproductive Hx- interactive project manager Hx Now No 08/23/24 10:38 Gestational Age (in weeks): EDC: Hx Hx Para Hx Section SAB No 08/23/24 10:38 Active Medications Active Medications: Current Medications Generic Name Dose Route Start Last Admin Trade Name Freq PRN Reason Stop Dose Admin Acetaminophen 1,000 mg 09/02/24 07:30 09/02/24 06:28 Acetaminophen 500 Mg Tablet PO 09/02/24 07:31 1,000 mg X1 ONE Administration Gabapentin 600 mg 09/02/24 07:30 09/02/24 06:28 Gabapentin 600 Mg Tablet PO 09/02/24 07:31 600 mg X1 ONE Administration Cefazolin Sodium 2 gm/ N/A 20 mls @ 400 mls/hr 09/02/24 07:30 IV 09/02/24 07:32 PREOP ONE Lactated Ringer's 1,000 mls @ 15 mls/hr 09/02/24 06:00 09/02/24 06:28 IV 09/07/24 19:19 15 mls/hr .Q48H KATE Administration Protocol Magnesium Sulfate 1 gm/ 102 mls @ 408 mls/hr 09/02/24 07:30 Dextrose IV 09/02/24 07:44 X1 ONE Insulin Human Lispro 1 - 6 unit 09/02/24 07:30 Insulin Lispro 100 Unit/Ml Insuln.Pen SC Q4H PRN PRN BG>/= 180, SEE PROTOCOL Protocol PFSH Medical History (Updated 09/02/24 @ 07:[address] Scotty Kellogg, DPM) Back pain History of pain when walking Seizures Wears glasses Cancer Anemia Fibroid uterus Scalp cyst Menorrhagia with regular cycle Dysplasia of cervix Right ureteral calculus Home Medications ?Medication ?Instructions ?Recorded ?Last Taken ?Type NK 09/02/24 Unknown History Allergy/AdvReac Type Severity Reaction Status Date / Time scopolamine Allergy Intermediate Rash Verified 09/02/24 06:16 Family History Grandfather Hypertension Grandmother Diabetes Hypertension Aunt H/O: hysterectomy Cervical cancer Surgical History History of robot-assisted laparoscopic hysterectomy (~04/29/22) History of loop electrosurgical excision procedure (LEEP) of cervix History of History of extraction of renal calculus Social History Smoking Status: Never smoker alcohol intake: never substance use type: does not use caffeine: Yes what type of physical activity do you participate in: none Review of Systems (Anesthesia) ROS Narrative System reviewed and no additional complaints, except as documented.
--- NOTE | 2024-09-02 07:23 | OP.PCM_ITS ---
Problems Associated Problem List Diagnoses (1) Hallux valgus (acquired), right foot: (2) Primary osteoarthritis, right ankle and foot: (3) Pain in right foot: (4) Enteropathic arthropathies, right ankle and foot: (5) Sprain of other ligament of right ankle, initial encounter: (6) Peroneal tendinitis, right leg: Report of Operation Date of Procedure: 09/02/24 Pre-Operative Diagnosis: 1. Hallux valgus, right foot 2. Primary osteoarthritis, right foot 3. Pain, right foot 4. Enteropathic arthropathies, right foot 5. Sprain, ATFL, right ankle 6. Peroneal tendinitis, right lower extremity Post-Operative Diagnosis: Same as preoperative diagnosis Surgery/Procedure Performed:: 1. Swanton of calcaneal bone graft, right foot 2. Capsulotomy, first metatarsal phalangeal joint, right foot 3. First tarsometatarsal joint arthrodesis, right foot 4. Arthroscopy with excessive debridement, right ankle 5. Lateral collateral ligament/ATFL repair, right ankle Description of Surgical Findings:: 1. Improved intermetatarsal angle 1-2 after correction of bunion, right foot 2. Successful completion of ATFL repair after arthroscopy debridement of right ankle. Surgeon: Scotty Kellogg life insurance underwriter: Eber Johnson Type of Anesthesia: Block,Regional, General and Local Anesthesiologist: Omar Villela Special Medications: Right lower extremity popliteal block provided by anesthesia Specimen's removed: None Drains: None Estimated Blood Loss (mL): 40 mL Fluids Replaced: Per anesthesia Description of Procedure: Indications For Operation: Ms. Hines is a 43-year-old female who was admitted to [facility] for right lower extremity foot and ankle pain. Patient has been suffering from bunion pain for the past few years. She is exhausted all conservative treatment consisting of shoe gear modification, taping, and injectable steroid, oral nonsteroid anti-inflammatories and shoe gear. Patient also complains of ankle pain due to instability for years of sports and having a loose ankle especially when she walks on uneven terrain. Patient was seen in private office a surgical consultation. After getting to know the patient she has exhausted all conservative treatment for her bunion and pain as well as conservative treatment for her right ankle instability. Due to pain of her right foot and ankle instability it was deemed necessary at this time to take the patient back to the operating room to perform the above procedure to help regain her strength of the ankle and decrease her constant pain to the foot and ankle of the right lower extremity. The nature of the problem, anticipated procedures, postop recovery/convalences and risk/complications include but not limited to infection, wound healing complications, digital amputation, hypertrophic scarring, numbness, tingling, chronic pain, CRPS, over and under correction, recurrence of deformity, DVT and or PE and the need for further surgery have been discussed in great detail with the patient. All questions have been answered to the patient's satisfaction. There are no guarantees given as to the outcome of the procedure. Description of Procedure: Under mild sedation, the patient was brought into the operating room and placed on the operating table in supine position. Once the patient was under general anesthesia with laryngeal mask airway, the right lower extremity was blocked using approximately 20 cc 0.5% Marcaine plain to the saphenous nerve. Patient did receive a popliteal block from anesthesia prior to incision please see anesthesia note for further detail. Next, a well-padded thigh tourniquet was applied to the right lower extremity. Next, the right lower extremity was prepped and draped in normal aseptic manner. Next, a timeout was then undertaken verifying the correct patient, extremity, visibility of preoperative markings, availability of the equipment. Next, attention was directed to the right lower extremity. Using a 6 Esmarch, right lower extremity was exsanguinated and elevated to 60 degrees for 1 minute. Procedure #1: Swanton of calcaneal bone graft, right foot (CPT code: 36369) Next, attention was directed to the lateral aspect of the right calcaneus. Using a #15 blade, a full-thickness incision, approximately 1 cm, was made down to bone without incident. Continued blunt dissection was carried out with curved hemostats. Using the Tradition Midstream 7 mm bone graft harvester, calcaneal bone harvest less than than 5 cc was made, then removed from the calcaneus and passed the back table to be used later in the case, for the first tarsometatarsal joint arthrodesis procedure. The incision was flushed with pipe fitter soft copper ious deena of normal saline. The skin was reapproximated and closed using 3-0 nylon in simple interrupted suture technique. Procedure #2, first tarsal metatarsal joint arthrodesis, right foot (CPT code: 98411/procedure #3, capsulotomy of the first metatarsal phalangeal joint (through a separate incision), right foot (CPT code: 98902) Next, attention was directed to the dorsal aspect of the right foot. Using fluoroscopy, the first tarsometatarsal joint was visualized. A longitudinal 3.5 cm incision with a #15 blade was made just medial to the extensor hallucis longu s tendon. The incision was made down to the periosteum with care to retract the tendon laterally. The periosteum was reflected. The first tarsometatarsal joint was exposed and identified. Careful dissection was carried down to the level of the first tarsometatarsal joint as well as in the lateral space between the first and second metatarsal. The ligaments were then released at the tarsometatarsal joint with planing with sagittal saw and saw blade. After planing was performed, the plantar ligaments were released with the Tritome. Next, through a separate incision, a capsulotomy will be performed at the lateral aspect of the first metatarsal phalangeal joint. A separate incision approximately 1 cm was made along the lateral aspect of the first metatarsophalangeal joint. Blunt dissection was carried down to the level of the first metatarsophalangeal joint. Using Tradition Midstream speed release tool, this was inserted laterally into the joint with joint fluid being exposed, then the speed release tool release the lateral ligaments. There was evidence of excellent release of the first metatarsophalangeal joint, and the metatarsal was able to be pushed laterally without soft tissue force imposing on it. The sesamoids were able to be retracted back into position which was confirmed on the large C-arm fluoroscopy. A capsulotomy incision was flushed with copious deena normal saline and closed with 3-0 nylon in simple interrupted suture technique. Next, attention was then redirected back to the first tarsometatarsal joint, the all-in-one positioner was inserted, positioning the first metatarsal into corrected position. Positioning of the cuts were confirmed with large C-arm fluoroscopy. Cuts were then made with the all-in-one device using the sagittal saw and provided blade by Tradition Midstream. The compression/distractor was applied. The joint was distracted and the cuts along the base of the first metatarsal and first cuneiform removed. Continued joint prep followed after using a combination of osteotome and curette. The joint was flushed with copious deena normal saline. Next, the joint was prepped using a fenestration with a 2- 0 drill bit along the first cuneiform and base of the first metatarsal. Next, the Swanton of calcaneal bone graft autograft was then packed in the first tarsometatarsal joint. At this point, the positioner was reapplied, compression/distractor was closed down and the fulcrum was then inserted on the lateral aspect of the base of the first metatarsal. Dorsiflexion of the hallux was then performed pushing the metatarsal and tarsometatarsal joint into place. Pinning with 2 smooth K wires in crossing fashion. Next, orthogonal plating was applied using (x2) 13 mm spleed plates by Tradition Midstream. All incisions were flushed with copious normal saline. The deep layers were reapproximated and closed using 3-0 Monocryl in simple interrupted suture technique. The subcutaneous layer was reapproximated closed using 3-0 Monocryl and running luque ture technique. The skin was reapproximated and closed using 3-0 nylon in horizontal mattress suture technique. Procedure #4: Arthroscopy with excessive debridement, right ankle (CPT code: 16034) Next, attention was directed to the right ankle. Next, injectable sterile saline 30 cc was injected to the right ankle without incident. The medial portal was established medial to the anterior tibial tendon. Using a #11 blade a small stab incision was made followed by blunt dissection with curved hemostats. Using the trocar and crawler tractor operator the medial portal was established. Using the Arthrex 4.0 mm 30 degree scope scope the lateral portal was established with illumination guidance to the lateral aspect of the ankle. Care was taken to identify the subcutaneous nerves. Using a 11 blade and a small stab incision was made at the safe spot of the lateral ankle. Continued blunt dissection was carried down with curved hemostats until the portal was established. Using the trocar and obturator the lateral portal was established. Exploration of the ankle showed evidence of synovitis and no evidence of osteochondral defect to the talar dome to the medial or lateral shoulder. Continue evaluation to the medial and lateral sides of the ankle was identified, and evidence of synovitis was noted. After thorough checking of the ankle at all 19 spots of the right ankle were identified. Next, excessive debridement of all synovitis in the ankle was done without incident after completion of the right ankle debridement the ankle was put through range of motion and the ankle showed good movement with range of motion clinically as well as under arthroscope for visualization. The fluid was evacuated from the right ankle using the shaver vacuum. All incisions were flushed with copious deena of normal saline. The right lower extremity was wiped clean and patted dry. All incisions were closed using 3-0 nylon in simple interrupted suture technique. The right lower extremity tourniquet was deflated at this time and reperfusion was noted instantly to the right lower extremity. All bleeders were ligated and cauterized as necessary. Procedure #5: Lateral collateral ligament/ATFL repair, right ankle (CPT code: 16481) Next, the ankle was put through range of motion and stress show evidence of positive talar tilt. The incision was marked out over the anterior lateral aspect of the fibula to the right lower extremity. Care was taken to identify intermediate dorsal cutaneous nerve. Once the incision was marked out, using a 15 blade a full-thickness incision down to subcutaneous tissue was performed. Continued blunt dissection was carried down with lately her scissors and pickup. Wet Ray-Hanna was used to lift up the deep tissue down to the fascia. Using a freer a army helicopter pilot hole was prepared from the distal tip of the fibula for approximately 4 cm proximally. A 15 blade was used to cut along the Norco and expose the fibula as well as the ATFL. The ATFL showed evidence of thickening. A large periosteal incision with the ATFL was made along the fibula exposing the ankle joint. The lateral side of the talus was identified and showed no evidence of talar dome lesions. Using x2 Citrafix anchors by Aruna, the 2 army helicopter pilot holes were prepared 1 and 5 mm from the tip of the fibula in the next one 1 cm from the most proximal drill hole was prepared using the kit provided by the rep with the rep in the room. The anchors were placed per the sprayer hand's recommendation using tape along both anchors. Using the given needle pants over vest technique was performed across the ATFL. Once the suture tape was hand tied there showed good rectus position of the right lower extremity after repair of the ATFL. The Guerrero modification was prepared using the additional suture in inferior retinaculum was used and pulled into place at the insertion of the ATFL along the fibula for a more stronger repair. The retinaculum was held in place with hands high. All loose tape was freed and the ankle was in a more rectus position after repair of the lateral collateral ligament. The ankle was stressed and showed no evidence of talar tilt or anterior drawer at this time. The incision was flushed with copious normal saline. CFL was reapproximated using 2-0 Vicryl interrupted suture technique. The deep layer was reapproximated closed using 3-0 Monocryl and running locking suture technique. The subcutaneous layer was reapproximated closed using 3-0 Monocryl and running suture technique. The skin was reapproximated closed using 3-0 nylon in horizontal mattress suture technique. The patient tolerated the procedure and anesthesia well and apparent satisfactory condition and was transported to the PACU for further monitoring prior to discharge home. Vital signs stable and vascular status intact to all digits bilateral. Post Operative Plan: Weightbearing: Nonweightbearing to right lower extremity with assistive crutches and/or knee scooter. Full weightbearing left lower extremity. Antibiotics: 2 g Ancef through the IV DVT Prophylaxis: 81 mg aspirin Vieyra: None Dressing: Betadine soaked Adaptic dry sterile dressing double layer Dickinson AO splint at 90 degrees in a slight dorsiflexion eversion position. X-Rays: Post-operative films taken on the operating room. Pain Medication: Percocet 5/325, Flexeril 10 mg Follow-up: Patient will follow-up with Dr. Kellogg 1 week postop in private office. Grafts/Implants Used: Treace medical hardware, Aruna anchors Complications None Admit VTE Documentation VTE Present on Admission: No VTE Mechan Device Prophylaxis: SCD's VTE Pharm Prophylaxis ordered?: Yes
[2024-09-02] MEDS: Magnesium 1 GM over 15 mins IV (07:26)
[2024-09-02] MEDS: Cefazolin 2 GM in Syringe IV (07:42)
--- NOTE | 2024-09-02 08:00 | RAD_ITS ---
STUDY: X-RAY - RIGHT FOOT CLINICAL: Female, 43 years old. ERAS, RIGHT FOOT TECHNIQUE: 6 C-arm view(s) of the foot. 204.6 seconds fluoroscopy time COMPARISON: None. FINDINGS: Multiple limited [id number] C-arm images show surgical changes of ankylosis across the first tarsometatarsal joints with fixation hardware. Correlate with procedure note. Electronically Signed: Cortez Chinchilla MD at 15:15 EDT , RAD/Foot 2 Views IMPRESSION: undefined
[2024-09-02] MEDS: Bupivacaine Mpf 0.5% 30 ML VIAL (09:10)
[2024-09-02] MEDS: Lidocaine 1% /Epi 1:100 (20ml) 20 ML Vial (09:31)
[2024-09-02 09:50] LABS: Bedside Glucose 137 mg/dL (74-106)
--- NOTE | 2024-09-02 11:11 | PCM.POST.ANE ---
Anesthesia: Postop Eval I Current Vital Signs Temperature: 97.3 F Pulse Rate: 68 Blood Pressure: 119/77 Respiratory Rate: 16 Pulse Ox: 94 Oxygen Delivery Method: Room Air Assessment Airway patent: Yes Spontaneous unlabored respirations: Yes Mental status: Awake and Calm nausea: No Vomiting: No Anesthesia Complication: No Fluid Hydration Crystalloid volume administer (ml): 1,000 Total IV fluid infused: 1,000 Progress Note Anesthesia document: Postop Eval 1 completed: Yes
[2024-09-02] MEDS: Ketorolac 30 MG/ML Syringe IV (11:25)
--- NOTE | 2024-09-02 16:04 | POSTOPAN2_ITS ---
Anesthesia Postop Eval I Sum Postop Eval Completion status Anesthesia document: Postop Eval 1 completed: Yes Anesthesia Postop Eval I Summary Anesthesia Postop Eval I Summary: Anesthesia Postop Eval I: Assessment Summary Airway patent Yes 09/02/24 11:11 FEED ADVISER.JOSÉ ANTONIOLOU Spontaneous unlabored Yes 09/02/24 11:11 FEED ADVISER.JOSÉ ANTONIOLOU respirations Mental status Awake,Calm 09/02/24 11:11 FEED ADVISER.JBLOU nausea No 09/02/24 11:11 FEED ADVISER.JBLOU Vomiting No 09/02/24 11:11 FEED ADVISER.JBLOU Anesthesia Postop Eval I: Fluid Summary Crystalloid volume administer 1,000 09/02/24 11:11 FEED ADVISER.JBLOU (ml) Colloids volume administered ( ml) Blood Product volume administered (ml) Total IV fluid infused 1,000 09/02/24 11:11 FEED ADVISER.JBLOU Anesthesia Postop Eval I: Summary Notes Anesthesia Complication No 09/02/24 11:11 FEED ADVISER.JOSÉ ANTONIOLOU Anesthesia Complication Comment: Post-operative progress note Anesthesia: Postop Eval II Evaluation Mental status: Awake and Calm Pain Level: 1 nausea: No Vomiting: No Complications Anesthesia Complication: No
--- NOTE | 2024-09-02 16:04 | PCM.POSTANE2 ---
Anesthesia Postop Eval I Sum Postop Eval Completion status Anesthesia document: Postop Eval 1 completed: Yes Anesthesia Postop Eval I Summary Anesthesia Postop Eval I Summary: Anesthesia Postop Eval I: Assessment Summary Airway patent Yes 09/02/24 11:11 ELECTRICAL SUPERVISOR.JOSÉ ANTONIOLOU Spontaneous unlabored Yes 09/02/24 11:11 ELECTRICAL SUPERVISOR.JOSÉ ANTONIOLOU respirations Mental status Awake,Calm 09/02/24 11:11 ELECTRICAL SUPERVISOR.JBLOU nausea No 09/02/24 11:11 ELECTRICAL SUPERVISOR.JBLOU Vomiting No 09/02/24 11:11 ELECTRICAL SUPERVISOR.JBLOU Anesthesia Postop Eval I: Fluid Summary Crystalloid volume administer 1,000 09/02/24 11:11 ELECTRICAL SUPERVISOR.JBLOU (ml) Colloids volume administered ( ml) Blood Product volume administered (ml) Total IV fluid infused 1,000 09/02/24 11:11 ELECTRICAL SUPERVISOR.JBLOU Anesthesia Postop Eval I: Summary Notes Anesthesia Complication No 09/02/24 11:11 ELECTRICAL SUPERVISOR.JOSÉ ANTONIOLOU Anesthesia Complication Comment: Post-operative progress note Anesthesia: Postop Eval II Evaluation Mental status: Awake and Calm Pain Level: 1 nausea: No Vomiting: No Complications Anesthesia Complication: No
--- NOTE | 2024-09-02 16:04 | PCM.POSTANE2 ---
Anesthesia Postop Eval I Sum Postop Eval Completion status Anesthesia document: Postop Eval 1 completed: Yes Anesthesia Postop Eval I Summary Anesthesia Postop Eval I Summary: Anesthesia Postop Eval I: Assessment Summary Airway patent Yes 09/02/24 11:11 WILDA Spontaneous unlabored Yes 09/02/24 11:11 WILDA respirations Mental status Awake,Calm 09/02/24 16:04 nausea No 09/02/24 16:04 Vomiting No 09/02/24 16:04 Anesthesia Postop Eval I: Fluid Summary Crystalloid volume administer 1,000 09/02/24 11:11 WILDA (ml) Colloids volume administered ( ml) Blood Product volume administered (ml) Total IV fluid infused 1,000 09/02/24 11:11 WILDA Anesthesia Postop Eval I: Summary Notes Anesthesia Complication No 09/02/24 16:04 Anesthesia Complication Comment: Post-operative progress note Anesthesia: Postop Eval II Evaluation Mental status: Awake and Calm Pain Level: 1
== END 2024-09-02 14:29 | disposition home or self-care (01) ==
LOC: SDC 05:37 → AC 05:37
PROVIDERS: Anesthesiology; PCP Nurse Practitioner Family; Referring Provider Podiatrist Foot & Ankle Surgery; Visit Provider Podiatrist Foot & Ankle Surgery
PROC: (CPT 28292; principal; 2024-09-02 07:15)
DX: M20.11 Hallux valgus (acquired), right foot (principal); M19.071 Primary osteoarthritis, right ankle and foot; M07.67 Enteropathic arthropathies, ankle and foot; M76.71 Peroneal tendinitis, right leg; S93.491A Sprain of other ligament of right ankle, initial encounter; X58.XXXA Exposure to other specified factors, initial encounter
CPT/HCPCS: 28270; 20900; 29898; 27698; 64447; 01470; 73620; 76000; 82962; 83735; C1713; J7120; A4216; J2405; J3475

== ENCOUNTER → 2024-11-04 | Outpatient (CLI) | payer OTHER, SELFPAY ==
--- NOTE | 2024-11-04 09:46 | BI_ITS ---
MAMMOGRAPHY - BILATERAL SCREENING REASON FOR EXAM: Female, 44 years old. Routine annual screening examination. PERTINENT HISTORY: Non-contributory. TECHNIQUE: Digital bilateral breast mic (3D mammographic acquisition) in the CC and MLO projections. 2-D mediolateral oblique (MLO) and craniocaudad (CC) views of both breasts were obtained. CAD: Full Field Digital Mammography with Computer Added Detection was performed. COMPARISON: Comparison is made with prior study dated November 02, 2023 and October 31, 2022. FINDINGS: Breast Composition: The breasts are heterogeneously dense, which may obscure small masses. There are no dominant masses or suspicious calcifications. No other significant abnormalities are identified. There has been no significant change since the prior study. BI/SCRN MAMM (CAD)W/MIC BILAT IMPRESSION: Stable bilateral screening mammogram. Yearly follow-up mammogram recommended. (A) ASSESSMENT CATEGORY: BIRADS Category 1: Negative. A letter regarding these results will be sent to the patient by the facility within 30 days. Approximately 10% of breast cancers are not detected by mammography. A normal mammogram should not delay biopsy of a clinically suspicious abnormality. [id number] Electronically Signed: Rajat Arevalo MD at 11:27 EST ,
== END | disposition home or self-care (01) ==
LOC: OPBI 09:46
PROVIDERS: PCP Nurse Practitioner Family; Referring Provider Nurse Practitioner Women's Health; Visit Provider Nurse Practitioner Women's Health
DX: Z12.31 Encounter for screening mammogram for malignant neoplasm of breast (principal)
CPT/HCPCS: 77063; 77067

== ENCOUNTER → 2025-05-17 | Outpatient (CLI) | payer BC, SELFPAY ==
[2025-05-17 12:09] LABS: Hematocrit 44.1 % (37-47); Hemoglobin 14.9 g/dL (12.0-15.0); Mean Corp Hgb Conc 33.8 g/dL (32-36); Mean Corpuscular Volume 89.8 fL (81-99); Mean Platelet Vol. 10.2 fl (6.2-12.0); Platelet Count 261 K/mm3 (150-450); RBC Distribution Width CV 12.5 % (11.6-14.6); RBC Distribution Width SD 40.9 fl (35.1-43.9); Red Blood Count 4.91 M/mm3 (4.2-5.4); White Blood Count 4.5 K/mm3 (4.4-11.0)
[2025-05-17 12:48] LABS: Ferritin 159 ng/mL (22-378); Iron 130 ug/dL (50-170); Iron Binding Capacity,Total 272 ug/dL (250-450); Iron Binding Capacity,Unsat 142 ug/dL (228-428)
--- OUTSIDE RECORDS SUMMARY | 2025-05-17 21:14 | XMS RPT_ITS | CCD ---
Author Organization [facility] Care Team Providers Care Dehydrating Press Operator Name Role Phone NIDIA HARRIS CNP Attending Unavailable NIDIA HARRIS CNP Consulting Unavailable NIDIA HARRIS CNP Primary Care Unavailable NIDIA HARRIS CNP Admitting Unavailable PROVIDER, UNKNOWN Consulting Unavailable NIDIA HARRIS Primary Care Unavailable NIDIA HARRIS Attending Unavailable REFERRED, SELF Referring Unavailable REFERRED, SELF Referring Unavailable NIDIA HARRIS Primary Care Unavailable NIDIA HARRIS Attending Unavailable REFERRED, SELF Referring Unavailable NIDIA HARRIS Primary Care Unavailable NIDIA HARRIS Attending Unavailable Allergies Allergy Classification Reported Allergen(s) Allergy Type Date of Onset Reaction(s) Facility (1 source) FLAVORING AGENT; Translations: [FLAVORING AGENT] Propensity to adverse reactions to drug (disorder) 3 [facility] Repository Results Test Name Value Interpretation Reference Range Facil ity Progress Noteon 06-17-2024 Learning Developer Authentication Interface Message Text Patient ID: Chery Dao is a 19 y.o. female. Her chief complaint(s) include: 19 YEAR WELL CHILD Assessment 1. Routine general medical examination at a health care facility 2. Dysmenorrhea Plan Chery was seen today for 19 year well child. Diagnoses and associated orders for this visit: Routine general medical examination at a health care facility - PHQ9 Assessment With Score - Health Risk Assessment - CRAFFT Dysmenorrhea Comments: Improved Orders: - norgestimate-ethinyl estradiol (SPRINTEC 28) 0.25-35 MG-MCG per tablet; Take 1 Tablet by mouth daily - POCT urine HCG Chery Dao is a 19 y.o. female patient. PHQ9 Assessment With Score Performed by: Nidia Harris APRN-CNP Authorized by: Nidia Harris APRN-CNP PHQ-9 See PHQ9 Flowsheet Feeling down, depressed, irritable or hopeless: Not at all Little interest or pleasure in doing things: Not at all Trouble falling or staying sleep, or sleeping too much: Not at all Poor appetite, weight loss, or overeating: Not at all Feeling tired or having little energy: Not at all Feeling bad about yourself - or feeling that you are a failure, or have let yourself or your family down: Not at all Trouble concentrating on things, like school work, reading or watching TV: Not at all Moving or speaking so slowly that other people could have noticed. Or the opposite - being so fidgety or restless that you were moving around a lot more than usual: Not at all Thoughts that you would be better off , or of hurting yourself in some way: Not at all In the past year have you felt depressed or sad most days, even if you felt OK sometimes?: No If you are experiencing any of the problems on this form, how difficult have these problems made it for you to do your work, take care of things at home or get along with other people?: Not difficult at all Has there been a time in the past month when you have had serious thoughts about ending your life?: No Have you ever, in your whole life, tried to kill yourself or made a suicide attempt?: No PHQ-9 Total Score: 0 Health Risk Assessment - CRAFFT Authorized by: Nidia Harris APRN-CNP CRAFFT Results: 1. Drink more than a few sips of beer, wine, or any drink containing alcohol? Put 0 if none.: 0 2. Use any marijuana (cannabis, weed, oil, wax, or hash by smoking, vaping, dabbing, or in edibles) or synthetic marijuana (like K2, or Spice)? Put 0 if none.: 0 3. Use anything else to get high (like other illegal drugs, pills, prescription or klkc-jov-dpuyanj medications, and things that you sniff, simon, vape, or inject)? Put 0 if none.: 0 4. Use a vaping device* containing nicotine and/or flavors, or use any tobacco products^? Put 0 if none.: 0 5. Have you ever ridden in a CAR driven by someone (including yourself) who was high or had been using alcohol or drugs?: No Total Score: : 0 Electronically signed by: Nidia M Walker, CANDY MAKER HELPER-SUBSTANCE ABUSE TECHNICIAN Return in about 1 year (around 06/17/2025) for well check. Periods are much improved with taking daily OCP. Chery remembers to take it daily and has reported no side effects. Discussed side effects, which can include weight gain, headache, nausea, breast tenderness, mood changes. These symptoms resolve around 3 months. Discussed benefits of control which can help with heavy bleeding and abnormal bleeding. Discussed risk factors that puts patient at risk for embolism (smoking, obesity, high blood pressure). If patient has severe headache, leg pain, or trouble breathing she should seek emergency room care immediately. Will see back in 12 months, call sooner with questions or concerns. Subjective She is unaccompanied. 19 YEAR WELL CHILD Home: Chery eats meals with family, has an adult to turn to for help and is permitted and able to make independent decisions. Chery has no home risk identified. (working). Education: Chery is a highschool graduate. Eating: Chery eats regular meals including fruits and vegetables, eats breakfast, limits fast food, drinks non-sweetened liquids and has a calcium source. Activities & Sports: Chery has friends. Drugs: Chery does not use tobacco, does not use drugs, does not use alcohol and does not vape. Safety: Chery has a violence free home, has peer relationships free from violence and uses seat belt. Chery does not use phone/text while driving. Sex: The patient has never had a sexual partner. Suicidality: Chery has ways to cope with stress and displays self-confidence. Chery has no problems with sleep, has no depression, has no anxiety, does not have mood swings, has no suicidal ideation, has no homicidal ideation and is not engaged in counseling. Menstruation Last Menstrual period: LMP from Vitals Patient's last menstrual period was 05/30/2024 (approximate).. Menstruation: regular periods Output Urine and Stool Patte (more content not included)... [facility] Progress Noteon 04-27-2024 Learning Developer Authentication Interface Message Text Patient ID: Chery Dao is a 19 y.o. female. Her chief complaint(s) include: Ear Pain (Cannot hear and experiencing pain in right ear for 2 days ago. Had bath on Thursday evening, possibly got water in ear. ) Assessment 1. Impacted cerumen of right ear 2. Axillary hyperhidrosis Plan Chery was seen today for ear pain. Diagnoses and associated orders for this visit: Impacted cerumen of right ear - Ear Irrigation NSG Axillary hyperhidrosis Return if symptoms worsen or fail to improve. NO ear infection ; After ear flush TM visible and WNL. Discussed trying drysol for excessive sweating; Chery wants to discuss with her mom to make sure it is covered by insurance and if it is ok with her mom. Please schedule a follow up as needed to discuss. Subjective HPI Comments: After her bath on Thursday night water got in her right ear and she feels like it is still there. Having trouble hearing - with hiccup or cough her right ear hurts. Tried to remove ear wax and not much came out. Dizzy after trying to remove wax. Cool compress helps it to feel better. Concerns about excessive underarm sweating. She is unaccompanied. Ear Problems The onset has been acute. The duration has been 4 days. The pattern is persistent. These symptoms occur in the right ear. The patient's associated symptoms have included dizziness (immediately after the ear rinse). The patient's associated symptoms have included no fatigue, no malaise, no fever, no congestion, no rhinorrhea, no sore throat, no trouble swallowing, no cough, no shortness of breath, no wheezing, no difficulty breathing, no abdominal pain, no nausea, no vomiting, no diarrhea and no decreased urination. The patient has been exposed to no sick contacts. Primary Care Review of Systems Objective Vital Signs 04/27/24 1325 Temp: 36.6 C (97.9 F) TempSrc: Temporal Weight: 58.2 kg There is no height or weight on file to calculate BMI. Physical Exam Constitutional: She appears well. She is active. No distress. HENT: Head: Atraumatic. Ears: Right Ear: Tympanic membrane normal. There is impacted cerumen in the right ear canal. Left Ear: Tympanic membrane and external ear normal. Nose: No nasal discharge. Mouth/Throat: Mucous membranes are moist. No pharynx erythema. Eyes: Right eyelid exhibits no discharge. Left eyelid exhibits no discharge. Right conjunctiva is not injected. Left conjunctiva is not injected. Cardiovascular: Normal rate, regular rhythm, S1 normal and S2 normal. Heart murmur not heard. Pulmonary/Chest: Effort normal and breath sounds normal. There is normal air entry. No stridor. No respiratory distress. Air movement is not decreased. She has no wheezes. She has no rhonchi. She has no rales. Exhibits no retraction. Musculoskeletal: Cervical back: Normal range of motion. Neurological: She is alert. Skin: Skin is warm. Skin is not pale. Findings: No rash. Vitals reviewed: Temperature 36.6 C (97.9 F), temperature source Temporal, weight 58.2 kg, last menstrual period 04/04/2024. Normal [facility] Progress Noteon 11-25-2023 Learning Developer Authentication Interface Message Text Patient ID: Chery Dao is a 18 y.o. female. Her chief complaint(s) include: Cough (Started on Thursday and is more of a dry cough.) and Hoarse (Started a hoarse voice on Thursday.) Assessment 1. Acute pharyngitis, unspecified etiology 2. Encounter for screening for COVID-19 Plan Chery was seen today for cough and hoarse. Diagnoses and associated orders for this visit: Acute pharyngitis, unspecified etiology - POCT ID NOW Rapid Strep A NAAT - POCT ID NOW Rapid COVID-19 NAAT - POCT ID NOW Rapid Flu A&B NAAT Encounter for screening for COVID-19 - POCT ID NOW Rapid COVID-19 NAAT Return if symptoms worsen or fail to improve. Strep, covid and influenza negative today. Discussed viral illness. Discussed expected course of viral illness. Rest, fluids, cool mist at bedside, honey (1 teaspoon three times a day) for cough if over 1 year old, nasal saline and suction as needed. May use Motrin or tylenol for pain or fever. Return to office if fever last longer than 5 days, symptoms worsen, symptoms last longer than 2 weeks. Call with questions or concerns. Subjective HPI Comments: Sore throat since Thu Has taken cough med and not helping. Cough gtts not helping. Dizzy this AM upon awakening. Yesterday mom made her some veggie broth; vomited it . Has been able to keep water and milk down and hamburger helper and fries- and a partial burger from [employer]. Drank some sprite. Peppermint diffuser sister uses makes the cough worse. She is unaccompanied. Cough The onset has been acute. The duration has been 6 days. The course is worsening. The patient's symptoms have included fatigue, decreased appetite, difficulty sleeping (due to cough), congestion, sore throat, trouble swallowing (the first few days), cough (but is coughing up mucous- clear), wheezing (maybe), difficulty breathing and headaches (on Thurs not since). The patient's symptoms have included no fever, no decreased fluid intake, no eye discharge, no eye redness, no rhinorrhea, no sneezing, no shortness of breath, no bilateral ear pain, no abdominal pain, no nausea, no vomiting and no diarrhea. The patient has been exposed to no sick contacts at home and at school . Primary Care Review of Systems Objective Vital Signs 11/25/23 1030 Temp: 36.9 C (98.4 F) TempSrc: Temporal Weight: 58.1 kg There is no height or weight on file to calculate BMI. Physical Exam Constitutional: She is active. No distress. Tired appearing. HENT: Head: Atraumatic. Ears: Right Ear: Tympanic membrane and external ear normal. Left Ear: Tympanic membrane and external ear normal. Nose: No nasal discharge (edematous). Mouth/Throat: Mucous membranes are moist. Pharynx erythema (posterior petechiae) present. Tonsils are 0 on the right. Tonsils are 0 on the left. Eyes: Right eyelid exhibits no discharge. Left eyelid exhibits no discharge. Right conjunctiva is not injected. Left conjunctiva is not injected. Neck: Neck supple. Cardiovascular: Normal rate, regular rhythm, S1 normal and S2 normal. Heart murmur not heard. Pulmonary/Chest: Effort normal and breath sounds normal. There is normal air entry. No stridor. No respiratory distress. Air movement is not decreased. She has no wheezes. She has no rhonchi. She has no rales. Exhibits no retraction. Genitourinary: Did not examine. Musculoskeletal: Cervical back: Normal range of motion and neck supple. Lymphadenopathy: No right anterior and posterior cervical adenopathy present. No left anterior and posterior cervical adenopathy present. Neurological: She is alert. Skin: Skin is warm. Skin is not pale. Findings: No rash. Vitals reviewed: Temperature 36.9 C (98.4 F), temperature source Temporal, weight 58.1 kg. Last Result POCT ID NOW Rapid Flu A&B NAAT Collection Time: 11/25/23 11:36 AM Result Value Ref Range INFLUENZA POC RESULT Negative Negative PROCEDURAL CONTROL POCT Control - Valid Lot Number [id number] POCT ID NOW Rapid COVID-19 NAAT Collection Time: 11/25/23 11:35 AM Result Value Ref Range POCT COVID-19 NAAT Negative Negative PROCEDURAL CONTROL POCT Control - Valid Lot Number [id number] POCT ID NOW Rapid Strep A NAAT Collection Time: 11/25/23 11:35 AM Result Value Ref Range STREP A POC RESULT Negative Negative PROCEDURAL CONTROL POCT Control - Valid Lot Number [id number] Normal [facility] CBC + DIFFon 06-13-2022 Baso # 0.00 x10EE3/UL Normal 0.00 - 0.10 [facility] Comment on above: Performed By: #### 2 [id number] #### [facility],[address] [place] [address] 41543 Basophils/100 WBC (Bld) 0.4 % Normal 0.0 - 2.0 [facility] Comment on above: Performed By: #### 2 67767 #### [facility],[address] [place] [address] 15074 CBC + DIFF Normal [facility] Comment on above: Result Comment: CBC- COMPLETE BLOOD COUNT Performed By: #### 2 [id number] #### [facility],[address] [place] [address] 44069 EO # 0.20 x10EE3/UL Normal 0.00 - 0.50 [facility] Comment on above: Performed By: #### 2 99204 #### [facility],[address] [place] [address] 32048 Eosinophils/100 WBC (Bld) 3.0 % Normal 0.0 - 7.0 [facility] Comment on above: Performed By: #### 2 52957 #### [facility],[address] [place] [address] 49509 Erythrocyte distribution width (RBC) [Ratio] 12.6 % Normal 12.0 - 15.6 [facility] Comment on above: Performed By: #### 2 48586 #### [facility],[address] [place] [address] 14416 Hematocrit (Bld) [Volume fraction] 42.2 % Normal 34.0 - 46.0 [facility] Comment on above: Performed By: #### 2 40120 #### [facility],[address] [place] [address] 25577 Hemoglobin (Bld) [Mass/Vol] 14.2 g/dL Normal 12.0 - 16.0 [facility] Comment on above: Performed By: #### 2 60303 #### [facility],[address] [place] [address] 48623 Lymph # 3.80 x10EE3/UL High 0.80 - 2.80 [facility] Comment on above: Performed By: #### 2 15995 #### [facility],[address] [place] [address] 43681 Lymphocytes/100 WBC (Bld) 53.7 % High 20.0 - 45.0 [facility] Comment on above: Performed By: #### 2 51638 #### [facility],[address] [place] [address] 34203 MANUAL DIFF N/A Normal [facility] Comment on above: Performed By: #### 2 30956 #### [facility],[address] [place] [address] 27954 MCH (RBC) [Entitic mass] 31 pg Normal 27 - 33 [facility] Comment on above: Performed By: #### 2 47131 #### [facility],[address] [place] [address] 96939 MCHC 34 X10 3 Normal 32 - 36 [facility] Comment on above: Performed By: #### 2 90389 #### [facility],[address] [place] [address] 02757 MCV (RBC) [Entitic vol] 91 fL Normal 80 - 99 [facility] Comment on above: Performed By: #### 2 46055 #### [facility],[address] [place] [address] 36255 [place] # 0.50 x10EE3/UL Normal 0.20 - 1.00 [facility] Comment on above: Performed By: #### 2 38647 #### [facility],[address] [place] [address] 34085 MONOS % 6.6 % Normal 0.0 - 10.0 [facility] Comment on above: Performed By: #### 2 67359 #### [facility],[address] [place] [address] 92233 Morphology Donte (Bld) [Interp] N/A Normal [facility] Comment on above: Result Comment: {CD] Performed By: #### 2 65419 #### [facility],[address] [place] [address] 02558 Neut # 2.50 x10EE3/UL Normal 1.50 - 7.10 [facility] Comment on above: Performed By: #### 2 09152 #### [facility],[address] [place] [address] 71673 Neutrophils/100 WBC (Bld) 36.3 % Low 46.0 - 76.0 [facility] Comment on above: Performed By: #### 2 17708 #### [facility],[address] [place] [address] 34596 PLATELET 271 x10EE3/UL Normal 150 - 450 [facility] Comment on above: Performed By: #### 2 17714 #### [facility],[address] [place] [address] 13119 Platelet mean volume (Bld) [Entitic vol] 8.2 fL Normal 6.6 - 10.5 [facility] Comment on above: Result Comment: AUTO MATED DIFFERENTIAL Performed By: #### 2 79969 #### [facility],[address] [place] [address] 12795 RBC 4.64 x 10EE6/UL Normal 4.10 - 5.30 [facility] Comment on above: Performed By: #### 2 39997 #### [facility],[address] [place] [address] 04239 WBC 7.0 x 10EE3/UL Normal 4.5 - 10.8 [facility] Comment on above: Performed By: #### 2 40569 #### [facility],[address] [place] [address] 55937 FERRITINon 06-13-2022 Ferritin [Mass/Vol] 90 ng/mL Normal 8 - 388 [facility] Comment on above: Performed By: #### 2 61734 #### [facility],[address] [place] [address] 58450 IRON AND TIBCon 06-13-2022 %SATURATION 48 % Normal [facility] Comment on above: Performed By: #### 2 73276 #### [facility],[address] [place] [address] 35332 Iron [Mass/Vol] 182 ug/dL High 50 - 170 [facility] Comment on above: Performed By: #### 2 35050 #### [facility],[address] [place] [address] 49620 TIBC 378 ug/dl Normal 250 - 450 [facility] Comment on above: Performed By: #### 2 98089 #### [facility],[address] [place] [address] 28040 UIBC 196 ug/dL Normal 155 - 355 [facility] Comment on above: Performed By: #### 2 10863 #### [facility],[address] [place] [address] 68182 LIPID PROFILEon 06-13-2022 Cholesterol [Mass/Vol] 156 mg/dL Normal 0 - 240 [facility] Comment on above: Performed By: #### 2 12310 #### [facility],[address] [place] [address] 49542 Cholesterol in HDL [Mass/Vol] 49 mg/dL Normal 40 - 60 [facility] Comment on above: Performed By: #### 2 98615 #### [facility],[address] [place] [address] 88049 Cholesterol in LDL [Mass/Vol] 81 mg/dL Normal 0 - 129 [facility] Comment on above: Performed By: #### 2 11455 #### [facility],[address] [place] [address] 26696 Cholesterol.total/Cho lesterol in HDL [Mass ratio] 3.2 {ratio} Normal 0.0 - 5.0 [facility] Comment on above: Performed By: #### 2 47714 #### [facility],[address] [place] [address] 58366 Lipid 1996 panel Normal [facility] Comment on above: Result Comment: LIPI D PROFILE Performed By: #### 2 76120 #### [facility],[address] [place] [address] 30959 Triglyceride [Mass/Vol] 129 mg/dL Normal 0 - 150 [facility] Comment on above: Performed By: #### 2 48666 #### [facility],[address] [place] [address] 61065 TSHon 06-13-2022 TSH Qn 3.87 m[IU]/L Normal 0.51 - 4.13 [facility] Comment on above: Performed By: #### 2 50380 #### [facility],[address] [place] [address] 03836 VITAMIN D, 25 HYDROXYon 05-17 VitD 18.90 ng/mL Low 30.00 - 100 [facility] Comment on above: Result Comment: 25-O HD3 indicates both endogenous production and supplementation. 25-OHD2 is an indicator of exogenous sources, such as diet or supplementation. Therapy is based on measurement of Total 25-OHD, with levels <20 ng/mL indicative of Vitamin D deficiency, while levels between 20 ng/mL and 30 ng/mL suggest insufficiency. Optimal levels are >=30ng/mL. Vitamin D, 25-OH D3 Not Established Vitamin D, 25-OH D2 Not Established Performed By: #### 2 58520 #### [facility],[address] [place] [address] 49239 Encounters Encounter Date Encounter Type Care Provider Facility Start: 06-17-2024 End: 06-17-2024 ambulatory NIDIA HARRIS [facility] Start: 04-27-2024 End: 04-27-2024 ambulatory SELF REFERRED [facility] Start: 11-25-2023 End: 11-25-2023 ambulatory SELF REFERRED [facility] Start: 06-13-2022 End: 06-13-2022 ambulatory NIDIA HARRIS [facility] Payers Date Payer Category Payer Unknown [id number] [id number] 2005 Unknown [id number] 2.16. [id number] 2005 Unknown [id number] 2.16. [id number] 1980 Unknown [id number] Unknown [id number] Summary Purpose Family History No Family History Records FoundNo Family History Records Found Advance Directives No Advanced Directives Records FoundNo Advanced Directives Records Found Additional Source Comments INFORMATION SOURCE (unrecogn ized section and content) DATE CREATED AUTHOR 06/17/2022 [facility] DATE CREATED AUTHOR 'S MALINI DIALLO 06/19/2024 [facility] FOR RECORDS PERTAINING TO PATIENTS WHO ARE OR HAVE BEEN ENROLLED IN A CHEMICAL DEPENDENCY/SUBSTANCEABUSE PROGRAM, SOME INFORMATION MAY BE OMITTED. This clinical summary was aggregated from multiple sources. Caution should be exercised in using it in the provision of clinical care. This summary normalizes information from multiple sources, and as a consequence, information in this document may materially change the coding, format and clinical context of patient data. In addition, data may be omitted in some cases. CLINICAL DECISIONS SHOULD BE BASED ON THE PRIMARY CLINICAL RECORDS. [facility] [facility]. provides no warranty or guarantee of the accuracy or completeness of information in this document.
== END | disposition home or self-care (01) ==
LOC: BWCLAB 09:48
PROVIDERS: PCP Nurse Practitioner Family; Visit Provider Obstetrics & Gynecology
DX: R23.3 Spontaneous ecchymoses (principal)
CPT/HCPCS: 36415; 82728; 83540; 83550; 85027

== ENCOUNTER → 2025-10-06 | Outpatient (CLI) | payer BC, SELFPAY ==
--- NOTE | 2025-10-06 07:48 | CT_ITS ---
PROCEDURE: EXTREMITY LOWER WITHOUT CONTRA 10/06/2025 REASON FOR EXAM: HARDWARE PAIN TECHNIQUE: Procedure Code: CTELWO Modality: CT Procedure: EXTREMITY LOWER WITHOUT CONTRA Coronal and Sagittal reconstruction series were provided. CONTRAST: VOLUME: mL One or more dose reduction techniques were used (e.g., Automated exposure control, adjustment of the mA and/or kV according to patient size, use of iterative reconstruction technique). FINDINGS: 2 large bone vilma and a syndesmotic screw are noted within the midfoot, fusing the 1st tarsal-metatarsal joint, and fusing the 3 cuneiforms. No radiographic evidence of hardware complication. No focal soft tissue swelling. No acute fracture or dislocation. Old screw tracts are noted within the lateral malleolus. Lucency in the inferior aspect of the calcaneus may represent a benign intraosseous cyst or intraosseous lipoma. CT/Extremity Lower without Contra IMPRESSION: Orthopedic hardware within the midfoot, as described above and without radiogra phic evidence of hardware complication. Reading Location: [id number]
== END | disposition home or self-care (01) ==
LOC: CT 07:45
PROVIDERS: PCP Nurse Practitioner Family; Referring Provider Podiatrist Foot & Ankle Surgery; Visit Provider Podiatrist Foot & Ankle Surgery
DX: T84.84XA Pain due to internal orthopedic prosthetic devices, implants and grafts, initial encounter (principal); M79.671 Pain in right foot
CPT/HCPCS: 73700

== ENCOUNTER → 2025-11-06 | Outpatient (CLI) | payer BC, SELFPAY ==
--- NOTE | 2025-11-06 08:15 | BI_ITS ---
EXAM: SCRN MAMM (CAD)W/MIC BILAT DATE: 11/06/2025 CLINICAL HISTORY: F, Age 45 y/o , BREAST CANCER SCREENING TECHNIQUE: Procedure Code: [id number] Modality: MG Procedure: SCRN MAMM (CAD)W/MIC BILAT COMPARISON: Prior exam(s) dated 11/04/2024, 11/02/2023, and 10/31/2022. FINDINGS: TISSUE DENSITY: There are scattered areas of fibroglandular density. Bilateral Breast Mammographic Findings: Benign round microcalcifications are seen in both breasts. No suspicious masses, suspicious cluster of microcalcifications, architectural distortion or secondary signs of malignancy is identified in either breast. BI/SCRN MAMM (CAD)W/MIC BILAT IMPRESSION: Benign screening mammogram OVERALL FINAL ASSESSMENT BI-RADS 2: BENIGN RECOMMENDATION: Routine annual follow-up in 1 Year Additional Recommendation none A letter with findings and recommendations will be mailed to the patient. Reading Location: [id number]
== END | disposition home or self-care (01) ==
LOC: OPBI 08:01
PROVIDERS: PCP Nurse Practitioner Family; Referring Provider Obstetrics & Gynecology; Visit Provider Obstetrics & Gynecology
DX: Z12.31 Encounter for screening mammogram for malignant neoplasm of breast (principal)
CPT/HCPCS: 77063; 77067